=== PATIENT | male | born 1940 | race Caucasian/White ===

== ENCOUNTER → 2023-07-19 07:55 | Outpatient (CLI) | payer MEDICARE, SELFPAY ==
--- NOTE | 2023-07-19 08:15 | DI.RAD.S_ITS ---
PROCEDURE: XR CHEST 2V INDICATIONS: Cough x 9 days TECHNIQUE: 2 views of the chest were acquired. COMPARISON: [facility], , CHEST 2 VIEW, 07/24/2011, 9:37. FINDINGS: Surgical changes and devices: None. Lungs and pleura: Middle lobe consolidation. Left lung is clear. Small right pleural effusion. No left-sided pleural effusion. No pneumothorax bilaterally. Mediastinum: Mediastinal contours are normal. Heart size is normal. Bones and chest wall: No suspicious bony abnormalities. Soft tissues appear unremarkable. IMPRESSION: Middle lobe consolidation most compatible with pneumonia. Recommend short interval radiographic follow-up in 6-8 weeks to document improvement and rule out an underlying obstructive process. Dictated by: Lyle Goyal M.D. on 07/19/2023 at 9:30 Approved by: Lyle Goyal M.D. on 07/19/2023 at 9:32
[2023-07-19 08:48] LABS: COVID-19 CEPHEID 4-PLEX PCR Negative (Negative); Influenza A - CEPHEID Flu A NEGATIVE (NEGATIVE); Influenza B - CEPHEID Flu B NEGATIVE (NEGATIVE); Respiratory Syncytial Virus Negative (Negative)
[2023-07-19 08:59] LABS: Hematocrit 35.9 % (41-53); Hemoglobin 12.2 g/dL (13.5-17.5); Mean Corpuscular Hemoglobin 32.6 PG (26-34); Mean Corpuscular Volume 96.1 fL (80-100); Platelet Count 314 X10^3/uL (150-400); Red Blood Cell Count 3.74 X10^6/uL (4.5-5.9); Red Cell Distribution Width 13.4 % (11.6-14.8); White Blood Cell Count 22.4 X10^3/uL (4.5-11.0)
[2023-07-19 09:23] LABS: Alanine Aminotransferase 47 IU/L (<50); Albumin 3.3 g/dL (3.5-5.0); Albumin Globulin Ratio 1.1 (1.0-2.8); Alkaline Phosphatase 102 U/L (38-126); Aspartate Aminotransferase 49 IU/L (17-59); Bilirubin Total 0.8 mg/dL (0.2-1.3); Blood Urea Nitrogen 37 mg/dL (9-20); Calcium 8.6 mg/dL (8.4-10.2); Carbon Dioxide 24 mmol/L (22-32); Chloride 98 mmol/L (98-107); Estimated Glomerular Filt Rate 53 mL/min (>60); Globulin 3.1 g/dL (1.7-4.1); Glucose 113 mg/dL (80-110); HEMOLYSIS < 15 (0-50); Potassium 4.4 mmol/L (3.4-5.1); Sodium 130 mmol/L (137-145); Total Protein 6.4 g/dL (6.3-8.2)
== END ==
PROVIDERS: Family Provider Family Medicine; PCP Family Medicine; Referring Provider Physician Assistant; Visit Provider Physician Assistant
DX: R05.1 Acute cough (principal); R53.83 Other fatigue; R53.81 Other malaise
CPT/HCPCS: 0241U; 36415; 71046; 80053; 85027

== ENCOUNTER 2023-12-22 10:30 | Outpatient (RCR) | payer MEDICARE, SELFPAY ==
--- NOTE | 2023-08-16 16:49 | PT.OPPOC ---
Physical, Occupational & Speech Therapy At [facility] Current Diagnoses Other chronic pain (08/16/23) Pain in right hip (08/16/23) Low back pain, unspecified (08/16/23) Presence of right artificial hip joint (08/16/23) Visit Care Team Role Provider Type Josefa Harp MD Attending Provider Non-Staff Family Provider Primary Care Provider Referring Provider Specialty: Medical Address: [address] [place] [address] [address], [place], [address] Email: Plan Of Care PT-OP-T Assessment and Plan Start: 08/03/23 10:55 Freq: Status: Active Protocol: Document 08/16/23 10:35 [facility] (Rec: 08/16/23 11:22 [facility] [id number]) Physical Therapy Assessment Rehab Potential Rehabilitation Potential Good Evaluation Complexity Number of Personal Factors/Comorbidities 3 or More Number of Body Systems Impaired 4 or More Clinical Presentation at Evaluation Evolving Impairments Impairments Activity Tolerance,Balance, Functional Activities, Functional Mobility,Gait,Pain, Posture,ROM,Soft Tissue Mobility,Strength Assessment Summary Assessment pt presents w/chronic R back pain (SI) and history of R LUISITO 9 years ago and 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 Leg length discrepency has improved in the past w/PT. He has dec balance and dec ability to stand or walk for long periods d/t back pain. He demonstrates limited R hip mobility and overall B hip weakness and core weakness. He would benefit from skilled PT to work on hip and back mobility and stability along w /gait mechanics and balance in order to dec pain. Physical Therapy Plan Frequency and Duration Duration of treatment (weeks) 10 Plan of Care Start Date 08/16/23 Plan of Care End Date 10/25/23 Therapeutic Interventions Therapeutic Interventions Balance Training,Gait Training ,Home Exercise Program,Joint Mobilizations,Manual Therapy, Neuromuscular Re-education, Orthotic/Prosthetic Management ,Patient/Caregiver Education, Self-Care/Home Management,Soft Tissue Mobilization,Taping, Therapeutic Activities, Therapeutic Exercises Modalities Cold Pack/Ice Massage,Electric Stimulation,Hot Packs, Traction- Mechanical, Ultrasound Next Visit Focus/Plan Next Note Type Treatment Note Next Visit Plan review HEP,s tanding hip strength exercises, controlled sit to stands; manual to pelvis and B hips (gentle to R as prior LUISITO) Plan of Care Dates Plan of Care Start Date 08/16/23 Plan of Care End Date 10/25/23 Electronically Signed by: France Haas, PT 08/17/23 9091 If you are in agreement with this Plan of Care, please return a signed and dated copy. I have reviewed this Plan of Care and certify that the skilled therapy services above are required to meet the patient?s needs. Physician Signature Date Printed Name and Credentials Clinical Instructor Signature Printed Name and Credentials
--- NOTE | 2023-08-16 17:48 | PT.OIE ---
Current Diagnoses Other chronic pain (08/16/23) Pain in right hip (08/16/23) Low back pain, unspecified (08/16/23) Presence of right artificial hip joint (08/16/23) Visit Care Team Role Provider Type Josefa Harp MD Attending Provider Non-Staff Family Provider Primary Care Provider Referring Provider Specialty: Medical Address: [address] [place] [address] [address], [place], [address] Email: Physical Therapy Initial Evaluation PT-OP-A Visit Information Start: 08/03/23 10:55 Freq: Status: Active Protocol: Document 08/16/23 10:35 [facility] (Rec: 08/16/23 11:22 [facility] [id number]) Out-Patient Physical Therapy Visit Information Visit Information Visit Type Initial Evaluation Visit Note 08/18 Visit Start Time 10:35 Visit Stop Time 11:15 Total Visit Minutes 40 Visit Number 1 Number of AIRPORT OPERATIONS OFFICER Visits 0 PT-OP-B Current Condition Start: 08/03/23 10:55 Freq: Status: Active Protocol: Document 08/16/23 10:35 [facility] (Rec: 08/16/23 11:22 [facility] [id number]) Current Condition History of Current Condition Current Complaints R SI and lower lumbar History of Current Condition Pt reports the back and hip pain has been going on for several years. He had LUISITO in 9 years. He has leg length discrepency which was better intially after Luisito but that got worse and did PT about 7-8 years ago. Leg length has gotten worse again. Wants program for stability. His back pain has been several years and has been getting worse. It is all R sided. He has always had a leg length since HS. WEars a small lift in R shoe. Cant walk as far. He walks w/his and gardens. Walks w/ 2-3x a week about 1.5 miles slowly- sometimes has pain at the end . Bikes a couple times a week with ebike. Treatment Goals Patient/Caregiver Goals get stabilization program to help maintain mobility PT-OP-C Subjective Start: 08/03/23 10:55 Freq: Status: Active Protocol: Document 08/16/23 10:35 [facility] (Rec: 08/16/23 11:22 [facility] [id number]) Patient Questionnaires Oswestry Low Back Index Oswestry Score OP-PT Pain Assessment Location R SI Pain Location Details R SI and lower lumbar Description Aching,With Movement Frequency Intermittent Pain Aggravating Factors Activity,Standing,Walking, Bending Other Pain Aggravating Factors garden Pain Alleviating Factors Inactivity,Sitting PT-OP-D Balance Start: 08/03/23 10:55 Freq: Status: Active Protocol: Document 08/16/23 10:35 [facility] (Rec: 08/16/23 11:22 [facility] [id number]) Balance Tests Single Limb Standing Single Limb- Right 9 sec w/deviation Single Limb- Left 12 sec w/deviation PT-OP-F Manual Assessment Start: 08/03/23 10:55 Freq: Status: Active Protocol: Document 08/16/23 10:35 [facility] (Rec: 08/16/23 11:22 [facility] [id number]) Manual Assessments Joint Mobility Assessment Joint Mobility Assessment L iliac crest heigher and greater trochanter and fib head; PT-OP-G Mobility & Gait Start: 08/03/23 10:55 Freq: Status: Active Protocol: Document 08/16/23 10:35 [facility] (Rec: 08/16/23 11:22 [facility] [id number]) OP Gait Assessment Comments Gait Comments dec push off LLE; slight lat trunk leaning, overall dec pelvis motion PT-OP-J Posture/Palpation/Skin Start: 08/03/23 10:55 Freq: Status: Active Protocol: Document 08/16/23 10:35 [facility] (Rec: 08/16/23 11:22 [facility] [id number]) Posture Evaluation [facility] Postural Classification System [facility] Postural Classifications Posterior/Anterior Vertebral Compression Test 2 Lumbar Protective Mechanism Left AP 0 Lumbar Protective Mechanism Right AP 0 Lumbar Protective Mechanism Left PA 1 Lumbar Protective Mechanism Right PA 1 Comments Posture Comments L pelvic shear, LLE ER>R; inc kyphsosis fwd head PT-OP-K Range of Motion Start: 08/03/23 10:55 Freq: Status: Active Protocol: Document 08/16/23 10:35 [facility] (Rec: 08/16/23 11:22 [facility] [id number]) Lumbar Spine Range of Motion Lumbar Spine Active Percentage Flexion 50 Extension 30 Rotation Left 40 Rotation Right 40 Lateral Flexion Left 80 Lateral Flexion Right 60 Comments pain w/flex and ext; pain w/R SB PT-OP-L Special Tests Start: 08/03/23 10:55 Freq: Status: Active Protocol: Document 08/16/23 10:35 [facility] (Rec: 08/16/23 11:22 [facility] [id number]) Special Tests Lumbar Spine Special Tests Slump Test Results ng B Straight Leg Raise Test Results about 45 deg HS stretch PT-OP-M Strength Start: 08/03/23 10:55 Freq: Status: Active Protocol: Document 08/16/23 10:35 [facility] (Rec: 08/16/23 11:22 [facility] [id number]) Hip Strength Hip Manual Muscle Testing Right Flexion (L2) 3+ Fair+ Extension (S1) 3+ Fair+ Abduction 3+ Fair+ External Rotation 4 Good Internal Rotation 4- Good- Left Flexion (L2) 4- Good- Extension (S1) 3+ Fair+ Abduction 4- Good- External Rotation 4+ Good+ Internal Rotation 5 Normal Knee Strength Knee Manual Muscle Testing Right Flexion (S2) 5 Normal Extension (L3) 5 Normal Left Flexion (S2) 5 Normal Extension (L3) 5 Normal Ankle/Foot Strength Ankle and Foot Manual Muscle Testing Right Dorsiflexion (L4) 5 Normal Plantarflexion (S1) 5 Normal Left Dorsiflexion (L4) 5 Normal Plantarflexion (S1) 5 Normal Comments 20 heel raises B PT-OP-Q Treatments Start: 08/03/23 10:55 Freq: Status: Active Protocol: Document 08/16/23 10:35 [facility] (Rec: 08/16/23 11:22 [facility] [id number]) Therapeutic Exercises Supine Exercises isometric Supine Exercise Name DL flex Side bilateral Reps/Minutes 30 sec Comments max cues for set up and inc time pelvic tilts Reps/Minutes 15 LTR Side bilateral Reps/Minutes 10 Comments max cues for core engagement PT-OP-T Assessment and Plan Start: 08/03/23 10:55 Freq: Status: Active Protocol: Document 08/16/23 10:35 [facility] (Rec: 08/16/23 11:22 [facility] [id number]) Physical Therapy Assessment Rehab Potential Rehabilitation Potential Good Evaluation Complexity Number of Personal Factors/Comorbidities 3 or More Number of Body Systems Impaired 4 or More Clinical Presentation at Evaluation Evolving Impairments Impairments Activity Tolerance,Balance, Functional Activities, Functional Mobility,Gait,Pain, Posture,ROM,Soft Tissue Mobility,Strength Assessment Summary Assessment pt presents w/chronic R back pain (SI) and history of R LUISITO 9 years ago and 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 Leg length discrepency has improved in the past w/PT. He has dec balance and dec ability to stand or walk for long periods d/t back pain. He demonstrates limited R hip mobility and overall B hip weakness and core weakness. He would benefit from skilled PT to work on hip and back mobility and stability along w /gait mechanics and balance in order to dec pain. Physical Therapy Plan Frequency and Duration Duration of treatment (weeks) 10 Plan of Care Start Date 08/16/23 Plan of Care End Date 10/25/23 Therapeutic Interventions Therapeutic Interventions Balance Training,Gait Training ,Home Exercise Program,Joint Mobilizations,Manual Therapy, Neuromuscular Re-education, Orthotic/Prosthetic Management ,Patient/Caregiver Education, Self-Care/Home Management,Soft Tissue Mobilization,Taping, Therapeutic Activities, Therapeutic Exercises Modalities Cold Pack/Ice Massage,Electric Stimulation,Hot Packs, Traction- Mechanical, Ultrasound Next Visit Focus/Plan Next Note Type Treatment Note Next Visit Plan review [employer] kristen hip strength exercises, controlled sit to stands; manual to pelvis and B hips (gentle to R as prior LUISITO)
--- NOTE | 2023-08-16 18:51 | PT.OIE ---
Current Diagnoses Other chronic pain (08/23/23) Pain in right hip (08/23/23) Low back pain, unspecified (08/23/23) Presence of right artificial hip joint (08/23/23) Visit Care Team Role Provider Type Josefa Harp MD Attending Provider Non-Staff Family Provider Primary Care Provider Referring Provider Specialty: Medical Address: [address] [place] [address] [address], [place], [address] Email: Physical Therapy Initial Evaluation PT-OP-A Visit Information Start: 08/03/23 10:55 Freq: Status: Active Protocol: Document 08/23/23 18:51 [facility] (Rec: 08/16/23 11:22 [facility] [id number]) Out-Patient Physical Therapy Visit Information Visit Information Visit Type Initial Evaluation Visit Note 08/18 Visit Start Time 10:35 Visit Stop Time 11:15 Total Visit Minutes 40 Visit Number 1 Number of DOPE MIXER Visits 0 PT-OP-B Current Condition Start: 08/03/23 10:55 Freq: Status: Active Protocol: Document 08/23/23 18:51 [facility] (Rec: 08/16/23 11:22 [facility] [id number]) Current Condition History of Current Condition Current Complaints R SI and lower lumbar History of Current Condition Pt reports the back and hip pain has been going on for several years. He had KELLI in 9 years. 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 Leg length has gotten worse again. Wants program for stability. His back pain has been several years and has been getting worse. It is all R sided. He has always had a leg length since HS. WEars a small lift in R shoe. Cant walk as far. He walks w/his and gardens. Walks w/ 2-3x a week about 1.5 miles slowly- sometimes has pain at the end . Bikes a couple times a week with ebike. Treatment Goals Patient/Caregiver Goals get stabilization program to help maintain mobility PT-OP-C Subjective Start: 08/03/23 10:55 Freq: Status: Active Protocol: Document 08/23/23 18:51 [facility] (Rec: 08/16/23 11:22 [facility] [id number]) Patient Questionnaires Oswestry Low Back Index Oswestry Score OP-PT Pain Assessment Location R SI Pain Location Details R SI and lower lumbar Description Aching,With Movement Frequency Intermittent Pain Aggravating Factors Activity,Standing,Walking, Bending Other Pain Aggravating Factors garden Pain Alleviating Factors Inactivity,Sitting PT-OP-D Balance Start: 08/03/23 10:55 Freq: Status: Active Protocol: Document 08/23/23 18:51 [facility] (Rec: 08/16/23 11:22 [facility] [id number]) Balance Tests Single Limb Standing Single Limb- Right 9 sec w/deviation Single Limb- Left 12 sec w/deviation PT-OP-F Manual Assessment Start: 08/03/23 10:55 Freq: Status: Active Protocol: Document 08/23/23 18:51 [facility] (Rec: 08/16/23 11:22 [facility] [id number]) Manual Assessments Joint Mobility Assessment Joint Mobility Assessment L iliac crest heigher and greater trochanter and fib head; PT-OP-G Mobility & Gait Start: 08/03/23 10:55 Freq: Status: Active Protocol: Document 08/23/23 18:51 [facility] (Rec: 08/16/23 11:22 [facility] [id number]) OP Gait Assessment Comments Gait Comments dec push off LLE; slight lat trunk leaning, overall dec pelvis motion PT-OP-J Posture/Palpation/Skin Start: 08/03/23 10:55 Freq: Status: Active Protocol: Document 08/23/23 18:51 [facility] (Rec: 08/16/23 11:22 [facility] [id number]) Posture Evaluation [facility] Postural Classification System [facility] Postural Classifications Posterior/Anterior Vertebral Compression Test 2 Lumbar Protective Mechanism Left AP 0 Lumbar Protective Mechanism Right AP 0 Lumbar Protective Mechanism Left PA 1 Lumbar Protective Mechanism Right PA 1 Comments Posture Comments L pelvic shear, LLE ER>R; inc kyphsosis fwd head PT-OP-K Range of Motion Start: 08/03/23 10:55 Freq: Status: Active Protocol: Document 08/23/23 18:51 [facility] (Rec: 08/16/23 11:22 [facility] [id number]) Lumbar Spine Range of Motion Lumbar Spine Active Percentage Flexion 50 Extension 30 Rotation Left 40 Rotation Right 40 Lateral Flexion Left 80 Lateral Flexion Right 60 Comments pain w/flex and ext; pain w/R SB PT-OP-L Special Tests Start: 08/03/23 10:55 Freq: Status: Active Protocol: Document 08/23/23 18:51 [facility] (Rec: 08/16/23 11:22 [facility] [id number]) Special Tests Lumbar Spine Special Tests Slump Test Results ng B Straight Leg Raise Test Results about 45 deg HS stretch PT-OP-M Strength Start: 08/03/23 10:55 Freq: Status: Active Protocol: Document 08/23/23 18:51 [facility] (Rec: 08/16/23 11:22 [facility] [id number]) Hip Strength Hip Manual Muscle Testing Right Flexion (L2) 3+ Fair+ Extension (S1) 3+ Fair+ Abduction 3+ Fair+ External Rotation 4 Good Internal Rotation 4- Good- Left Flexion (L2) 4- Good- Extension (S1) 3+ Fair+ Abduction 4- Good- External Rotation 4+ Good+ Internal Rotation 5 Normal Knee Strength Knee Manual Muscle Testing Right Flexion (S2) 5 Normal Extension (L3) 5 Normal Left Flexion (S2) 5 Normal Extension (L3) 5 Normal Ankle/Foot Strength Ankle and Foot Manual Muscle Testing Right Dorsiflexion (L4) 5 Normal Plantarflexion (S1) 5 Normal Left Dorsiflexion (L4) 5 Normal Plantarflexion (S1) 5 Normal Comments 20 heel raises B PT-OP-Q Treatments Start: 08/03/23 10:55 Freq: Status: Active Protocol: Document 08/23/23 18:51 [facility] (Rec: 08/16/23 11:22 [facility] [id number]) Therapeutic Exercises Supine Exercises isometric Supine Exercise Name DL flex Side bilateral Reps/Minutes 30 sec Comments max cues for set up and inc time pelvic tilts Reps/Minutes 15 LTR Side bilateral Reps/Minutes 10 Comments max cues for core engagement PT-OP-T Assessment and Plan Start: 08/03/23 10:55 Freq: Status: Active Protocol: Document 08/23/23 18:51 [facility] (Rec: 08/16/23 11:22 [facility] [id number]) Physical Therapy Assessment Rehab Potential Rehabilitation Potential Good Evaluation Complexity Number of Personal Factors/Comorbidities 3 or More Number of Body Systems Impaired 4 or More Clinical Presentation at Evaluation Evolving Impairments Impairments Activity Tolerance,Balance, Functional Activities, Functional Mobility,Gait,Pain, Posture,ROM,Soft Tissue Mobility,Strength Goals balance Applicator Sprayer Goal (LTG) pt will be able to do SLS for 15 sec B LTG Duration 10/25/23 KYLEIGH Impairment 9/50 Applicator Sprayer Goal (LTG) Pt will show iimproved KYLEIGH score to no greater than 4/50 to show improved functional ability LTG Duration 10/25/23 activity Short Term Goal (STG) Pt will be able to do standard walks w/ w/o inc pain STG Duration 09/26 Applicator Sprayer Goal (LTG) Pt will be able to walk greater than 1.5 mile without increased pain LTG Duration 10/25/23 strength Short Term Goal (STG) Pt will be indep w/HEP Applicator Sprayer Goal (LTG) Pt will score at least 4+/5 on all LE MMT B and at least 3/5 on LPM in all planes to show improved stabiltiy in order to dec pain. 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 Leg length discrepency has improved in the past w/PT. He has dec balance and dec ability to stand or walk for long periods d/t back pain. He demonstrates limited R hip mobility and overall B hip weakness and core weakness. He would benefit from skilled PT to work on hip and back mobility and stability along w /gait mechanics and balance in order to dec pain. Physical Therapy Plan Frequency and Duration Duration of treatment (weeks) 10 Plan of Care Start Date 08/16/23 Plan of Care End Date 10/25/23 Therapeutic Interventions Therapeutic Interventions Balance Training,Gait Training ,Home Exercise Program,Joint Mobilizations,Manual Therapy, Neuromuscular Re-education, Orthotic/Prosthetic Management ,Patient/Caregiver Education, Self-Care/Home Management,Soft Tissue Mobilization,Taping, Therapeutic Activities, Therapeutic Exercises Modalities Cold Pack/Ice Massage,Electric Stimulation,Hot Packs, Traction- Mechanical, Ultrasound Next Visit Focus/Plan Next Note Type Treatment Note Next Visit Plan review HEP,s tanding hip strength exercises, controlled sit to stands; manual to pelvis and B hips (gentle to R as prior KELLI)
--- NOTE | 2023-08-16 18:51 | PT.OPPOC ---
Addendum entered and electronically signed by France Haas, PT 08/23/23 18:53: POC faxed Original Note: Physical, Occupational & Speech Therapy At [facility] Current Diagnoses Other chronic pain (08/23/23) Pain in right hip (08/23/23) Low back pain, unspecified (08/23/23) Presence of right artificial hip joint (08/23/23) Visit Care Team Role Provider Type Josefa Harp MD Attending Provider Non-Staff Family Provider Primary Care Provider Referring Provider Specialty: Medical Address: [address] [place] [address], [place], [address] Email: Plan Of Care PT-OP-T Assessment and Plan Start: 08/03/23 10:55 Freq: Status: Active Protocol: Document 08/23/23 18:51 [facility] (Rec: 08/16/23 11:22 [facility] [id number]) Physical Therapy Assessment Rehab Potential Rehabilitation Potential Good Evaluation Complexity Number of Personal Factors/Comorbidities 3 or More Number of Body Systems Impaired 4 or More Clinical Presentation at Evaluation Evolving Impairments Impairments Activity Tolerance,Balance, Functional Activities, Functional Mobility,Gait,Pain, Posture,ROM,Soft Tissue Mobility,Strength Goals balance Fdc Goal (LTG) pt will be able to do SLS for 15 sec B LTG Duration 10/25/23 KYLEIGH Impairment 9/50 Professor Of Physics Goal (LTG) Pt will show iimproved KYLEIGH score to no greater than 4/50 to show improved functional ability LTG Duration 10/25/23 activity Short Term Goal (STG) Pt will be able to do standard walks w/ w/o inc pain STG Duration 09/26 Fdc Goal (LTG) Pt will be able to walk greater than 1.5 mile without increased pain LTG Duration 10/25/23 strength Short Term Goal (STG) Pt will be indep w/HEP Professor Of Physics Goal (LTG) Pt will score at least 4+/5 on all LE MMT B and at least 3/5 on LPM in all planes to show improved stabiltiy in order to dec pain. 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 Leg length discrepency has improved in the past w/PT. He has dec balance and dec ability to stand or walk for long periods d/t back pain. He demonstrates limited R hip mobility and overall B hip weakness and core weakness. He would benefit from skilled PT to work on hip and back mobility and stability along w /gait mechanics and balance in order to dec pain. Physical Therapy Plan Frequency and Duration Duration of treatment (weeks) 10 Plan of Care Start Date 08/16/23 Plan of Care End Date 10/25/23 Therapeutic Interventions Therapeutic Interventions Balance Training,Gait Training ,Home Exercise Program,Joint Mobilizations,Manual Therapy, Neuromuscular Re-education, Orthotic/Prosthetic Management ,Patient/Caregiver Education, Self-Care/Home Management,Soft Tissue Mobilization,Taping, Therapeutic Activities, Therapeutic Exercises Modalities Cold Pack/Ice Massage,Electric Stimulation,Hot Packs, Traction- Mechanical, Ultrasound Next Visit Focus/Plan Next Note Type Treatment Note Next Visit Plan review HEP,s tanding hip strength exercises, controlled sit to stands; manual to pelvis and B hips (gentle to R as prior LUISITO) Plan of Care Dates Plan of Care Start Date 08/16/23 Plan of Care End Date 10/25/23 Electronically Signed by: France Haas, PT 08/23/23 1556 If you are in agreement with this Plan of Care, please return a signed and dated copy. I have reviewed this Plan of Care and certify that the skilled therapy services above are required to meet the patient?s needs. Physician Signature Date Printed Name and Credentials Clinical Instructor Signature Printed Name and Credentials
--- NOTE | 2023-08-23 13:00 | PT.OTN ---
Current Diagnoses Other chronic pain (08/23/23) Pain in right hip (08/23/23) Low back pain, unspecified (08/23/23) Presence of right artificial hip joint (08/23/23) Physical Therapy Treatment Note PT-OP-A Visit Information Start: 08/03/23 10:55 Freq: Status: Active Protocol: Document 08/23/23 12:17 SP (Rec: 08/23/23 13:05 SP [id number]) Out-Patient Physical Therapy Visit Information Visit Information Visit Type Treatment Note Visit Note 09/18 Visit Start Time 12:17 Visit Stop Time 13:00 Total Visit Minutes 42 Visit Number 2 Number of CONVERTIBLE POWER SHOVEL OPERATOR Visits 1 PT-OP-B Current Condition Start: 08/03/23 10:55 Freq: Status: Active Protocol: Document 08/16/23 10:35 [facility] (Rec: 08/16/23 11:22 [facility] [id number]) Current Condition History of Current Condition Current Complaints R SI and lower lumbar History of Current Condition Pt reports the back and hip pain has been going on for several years. He had KELLI in 9 years. 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 Leg length has gotten worse again. Wants program for stability. His back pain has been several years and has been getting worse. It is all R sided. He has always had a leg length since HS. WEars a small lift in R shoe. Cant walk as far. He walks w/his and gardens. Walks w/ 2-3x a week about 1.5 miles slowly- sometimes has pain at the end . Bikes a couple times a week with ebike. Treatment Goals Patient/Caregiver Goals get stabilization program to help maintain mobility PT-OP-C Subjective Start: 08/03/23 10:55 Freq: Status: Active Protocol: Document 08/23/23 12:17 SP (Rec: 08/23/23 13:05 SP [id number]) OP-PT Subjective Patient Comments Patient Comments Pt reports compliant with HEP, feels hitting the target and responding. Wants to review doing correctly. PT-OP-D Balance Start: 08/03/23 10:55 Freq: Status: Active Protocol: Document 08/16/23 10:35 [facility] (Rec: 08/16/23 11:22 [facility] [id number]) Balance Tests Single Limb Standing Single Limb- Right 9 sec w/deviation Single Limb- Left 12 sec w/deviation PT-OP-F Manual Assessment Start: 08/03/23 10:55 Freq: Status: Active Protocol: Document 08/16/23 10:35 [facility] (Rec: 08/16/23 11:22 [facility] [id number]) Manual Assessments Joint Mobility Assessment Joint Mobility Assessment L iliac crest heigher and greater trochanter and fib head; PT-OP-G Mobility & Gait Start: 08/03/23 10:55 Freq: Status: Active Protocol: Document 08/16/23 10:35 [facility] (Rec: 08/16/23 11:22 [facility] [id number]) OP Gait Assessment Comments Gait Comments dec push off LLE; slight lat trunk leaning, overall dec pelvis motion PT-OP-J Posture/Palpation/Skin Start: 08/03/23 10:55 Freq: Status: Active Protocol: Document 08/16/23 10:35 [facility] (Rec: [facility]16/23 [id number] Postural Classification System [facility] Postural Classifications Posterior/Anterior Vertebral Compression Test 2 Lumbar Protective Mechanism Left AP 0 Lumbar Protective Mechanism Right AP 0 Lumbar Protective Mechanism Left PA 1 Lumbar Protective Mechanism Right PA 1 Comments Posture Comments L pelvic shear, LLE ER>R; inc kyphsosis fwd head PT-OP-K Range of Motion Start: 08/03/23 10:55 Freq: Status: Active Protocol: Document 08/16/23 10:35 [facility] (Rec: 08/16/23 11:22 [facility] [id number]) Lumbar Spine Range of Motion Lumbar Spine Active Percentage Flexion 50 Extension 30 Rotation Left 40 Rotation Right 40 Lateral Flexion Left 80 Lateral Flexion Right 60 Comments pain w/flex and ext; pain w/R SB PT-OP-L Special Tests Start: 08/03/23 10:55 Freq: Status: Active Protocol: Document 08/16/23 10:35 [facility] (Rec: 08/16/23 11:22 [facility] [id number]) Special Tests Lumbar Spine Special Tests Slump Test Results ng B Straight Leg Raise Test Results about 45 deg HS stretch PT-OP-M Strength Start: 08/03/23 10:55 Freq: Status: Active Protocol: Document 08/16/23 10:35 [facility] (Rec: 08/16/23 11:22 [facility] [id number]) Hip Strength Hip Manual Muscle Testing Right Flexion (L2) 3+ Fair+ Extension (S1) 3+ Fair+ Abduction 3+ Fair+ External Rotation 4 Good Internal Rotation 4- Good- Left Flexion (L2) 4- Good- Extension (S1) 3+ Fair+ Abduction 4- Good- External Rotation 4+ Good+ Internal Rotation 5 Normal Knee Strength Knee Manual Muscle Testing Right Flexion (S2) 5 Normal Extension (L3) 5 Normal Left Flexion (S2) 5 Normal Extension (L3) 5 Normal Ankle/Foot Strength Ankle and Foot Manual Muscle Testing Right Dorsiflexion (L4) 5 Normal Plantarflexion (S1) 5 Normal Left Dorsiflexion (L4) 5 Normal Plantarflexion (S1) 5 Normal Comments 20 heel raises B PT-OP-Q Treatments Start: 08/03/23 10:55 Freq: Status: Active Protocol: Document 08/23/23 12:17 SP (Rec: 08/23/23 13:05 SP [id number]) Therapeutic Exercises Supine Exercises isometric Supine Exercise Name DL flex Side bilateral Reps/Minutes 30SH, 40 SH Comments cued PPT, good tiring effort in TA and back but no pain pelvic tilts Reps/Minutes 10 reps, 10 SH Comments cued slow engage/release, improved TA fac and LS ROM LTR Side bilateral Reps/Minutes 10, 3 SH end feel/range tolerant Comments max cues for core engagement with slow ROM Sitting Exercises STS Sitting Exercise Name eccentric sit/stand Reps/Minutes x5 reps arms across chest Comments suggested keeping up with Other Exercises cat camel Other Exercise Name added to HEP Equipment Used floor on yoga mat encouraged at home Reps/Minutes x5 reps Comments cued and mod cues for pelvic tilts tailbone floor/ceiling improved LS ROM quadruped Other Exercise Name added to HEP: UE/ LE ext glide floor, lift little if stable Side bilateral Equipment Used floor on yoga mat encouraged at home Reps/Minutes 5 reps each side Comments good form, cued slow only lift if stable- good activity effort mobility child's pose Other Exercise Name added to HEP Equipment Used floor on yoga mat encouraged at home Reps/Minutes 2x30 Comments good LB stretch Therapeutic Activity Therapeutic Activity on/off floor Name good for use furniture for stabilty for HEP Reps/Minutes 1 Comments good form I Self-Care/Home Management Treatment Education Patient Education Home Exercise Program,Joint Protection,Pain Management, Posture Other Education He discussed still performs supine hip FF, ABD from his past. Discussed keep up with. Some time spent discussion use pillows between BLEs at night and naps for hip/LB support, if supine pillow under thighs good understanding and reasoning. PT-OP-T Assessment and Plan Start: 08/03/23 10:55 Freq: Status: Active Protocol: Document 08/23/23 12:17 SP (Rec: 08/23/23 13:05 SP [id number]) Physical Therapy Assessment Assessment Summary Assessment Pt good response to HEP review . Initiated on/off floor with chair support for allowance strengthening activity keep up with, added quadruped AROM/ stretching and UE/ LE against gravity with occasional cue for alignment set up lift if stable. Provided HOs for new quadruped activities, pt reports I am feel pretty good and like the new exercises like doing something again. Painfree leaving. Physical Therapy Plan Frequency and Duration Duration of treatment (weeks) 10 Plan of Care Start Date 08/16/23 Plan of Care End Date 10/25/23 Therapeutic Interventions Therapeutic Interventions Balance Training,Gait Training ,Home Exercise Program,Joint Mobilizations,Manual Therapy, Neuromuscular Re-education, Orthotic/Prosthetic Management ,Patient/Caregiver Education, Self-Care/Home Management,Soft Tissue Mobilization,Taping, Therapeutic Activities, Therapeutic Exercises Modalities Cold Pack/Ice Massage,Electric Stimulation,Hot Packs, Traction- Mechanical, Ultrasound Next Visit Focus/Plan Next Note Type Treatment Note Next Visit Plan Review HEP: new quadruped, supine DL isometric again. POC: add standing hip strength exercises, controlled sit to stands; manual to pelvis and B hips (gentle to R as prior KELLI)
--- NOTE | 2023-09-06 12:18 | PT.OTN ---
Current Diagnoses Other chronic pain (09/06/23) Pain in right hip (09/06/23) Low back pain, unspecified (09/06/23) Presence of right artificial hip joint (09/06/23) Physical Therapy Treatment Note PT-OP-A Visit Information Start: 08/03/23 10:55 Freq: Status: Active Protocol: Document 09/06/23 11:21 [facility] (Rec: 09/06/23 12:18 [facility] [id number]) Out-Patient Physical Therapy Visit Information Visit Information Visit Type Treatment Note Visit Note 10/16 Visit Start Time 11: Visit Stop Time 12: Visit Number 3 Number of STRIPPER MACHINE OPERATOR Visits 0 PT-OP-B Current Condition Start: 08/03/23 10:55 Freq: Status: Active Protocol: Document 08/16/23 18:51 [facility] (Rec: 08/16/23 11:22 [facility] [id number]) Current Condition History of Current Condition Current Complaints R SI and lower lumbar History of Current Condition Pt reports the back and hip pain has been going on for several years. He had KELLI in 9 years. He has leg length discrepency which was better intially after Kleli but that got worse and did PT about 7-8 years ago. Leg length has gotten worse again. Wants program for stability. His back pain has been several years and has been getting worse. It is all R sided. He has always had a leg length since HS. WEars a small lift in R shoe. Cant walk as far. He walks w/his and gardens. Walks w/ 2-3x a week about 1.5 miles slowly- sometimes has pain at the end . Bikes a couple times a week with ebike. Treatment Goals Patient/Caregiver Goals get stabilization program to help maintain mobility PT-OP-C Subjective Start: 08/03/23 10:55 Freq: Status: Active Protocol: Document 09/06/23 11:21 [facility] (Rec: 09/06/23 12:18 [facility] [id number]) OP-PT Subjective Patient Comments Patient Comments Pt reports he was walking a lot in [place] so was doing exercises less but did do them some. PT-OP-D Balance Start: 08/03/23 10:55 Freq: Status: Active Protocol: Document 08/16/23 18:51 [facility] (Rec: 08/16/23 11:22 [facility] [id number]) Balance Tests Single Limb Standing Single Limb- Right 9 sec w/deviation Single Limb- Left 12 sec w/deviation PT-OP-F Manual Assessment Start: 08/03/23 10:55 Freq: Status: Active Protocol: Document 08/16/23 18:51 [facility] (Rec: 08/16/23 11:22 [facility] [id number]) Manual Assessments Joint Mobility Assessment Joint Mobility Assessment L iliac crest heigher and greater trochanter and fib head; PT-OP-G Mobility & Gait Start: 08/03/23 10:55 Freq: Status: Active Protocol: Document 08/16/23 18:51 [facility] (Rec: 08/16/23 11:22 [facility] [id number]) OP Gait Assessment Comments Gait Comments dec push off LLE; slight lat trunk leaning, overall dec pelvis motion PT-OP-J Posture/Palpation/Skin Start: 08/03/23 10:55 Freq: Status: Active Protocol: Document 08/16/23 18:51 [facility] (Rec: 08/16/23 11:22 [facility] [id number]) Posture Evaluation [facility] Postural Classification System [facility] Postural Classifications Posterior/Anterior Vertebral Compression Test 2 Lumbar Protective Mechanism Left AP 0 Lumbar Protective Mechanism Right AP 0 Lumbar Protective Mechanism Left PA 1 Lumbar Protective Mechanism Right PA 1 Comments Posture Comments L pelvic shear, LLE ER>R; inc kyphsosis fwd head PT-OP-K Range of Motion Start: 08/03/23 10:55 Freq: Status: Active Protocol: Document 08/16/23 18:51 [facility] (Rec: 08/16/23 11:22 [facility] [id number]) Lumbar Spine Range of Motion Lumbar Spine Active Percentage Flexion 50 Extension 30 Rotation Left 40 Rotation Right 40 Lateral Flexion Left 80 Lateral Flexion Right 60 Comments pain w/flex and ext; pain w/R SB PT-OP-L Special Tests Start: 08/03/23 10:55 Freq: Status: Active Protocol: Document 08/16/23 18:51 [facility] (Rec: 08/16/23 11:22 [facility] [id number]) Special Tests Lumbar Spine Special Tests Slump Test Results ng B Straight Leg Raise Test Results about 45 deg HS stretch PT-OP-M Strength Start: 08/03/23 10:55 Freq: Status: Active Protocol: Document 08/16/23 18:51 [facility] (Rec: 08/16/23 11:22 [facility] [id number]) Hip Strength Hip Manual Muscle Testing Right Flexion (L2) 3+ Fair+ Extension (S1) 3+ Fair+ Abduction 3+ Fair+ External Rotation 4 Good Internal Rotation 4- Good- Left Flexion (L2) 4- Good- Extension (S1) 3+ Fair+ Abduction 4- Good- External Rotation 4+ Good+ Internal Rotation 5 Normal Knee Strength Knee Manual Muscle Testing Right Flexion (S2) 5 Normal Extension (L3) 5 Normal Left Flexion (S2) 5 Normal Extension (L3) 5 Normal Ankle/Foot Strength Ankle and Foot Manual Muscle Testing Right Dorsiflexion (L4) 5 Normal Plantarflexion (S1) 5 Normal Left Dorsiflexion (L4) 5 Normal Plantarflexion (S1) 5 Normal Comments 20 heel raises B PT-OP-Q Treatments Start: 08/03/23 10:55 Freq: Status: Active Protocol: Document 09/06/23 11:21 [facility] (Rec: 09/06/23 12:18 [facility] [id number]) Therapeutic Exercises Supine Exercises isometric Supine Exercise Name DL flex Side bilateral Reps/Minutes 30SH Comments min cues for DF pelvic tilts Supine Exercise Name 1. pelvic tilts 2. bridges w/ tilt Side bilateral Reps/Minutes 1. 2x10 sec 2. [id number] LTR Side bilateral Reps/Minutes 10, 3 SH end feel/range tolerant Comments max cues for core engagement with slow ROM Sitting Exercises STS Sitting Exercise Name eccentric sit/stand-tap to chair Side bilateral Reps/Minutes x10 reps arms across chest Other Exercises cat camel Other Exercise Name review HEP Equipment Used floor on yoga mat encouraged at home Reps/Minutes 10 Comments cued and mod cues for pelvic tilts tailbone floor/ceiling improved LS ROM quadruped Other Exercise Name bird dog w/small lift Side bilateral Equipment Used floor on yoga mat encouraged at home Reps/Minutes 10 reps each side Comments cues for neutral trunk child's pose Other Exercise Name review HEP Equipment Used floor on yoga mat encouraged at home Reps/Minutes 2x30 Comments good LB stretch Manual Therapy Treatment Soft Tissue Mobilization hip Body Location R glutes orgin and insertion Mobilization Type Rolling Intensity/Depth Moderate Body Position Sidelying LB Body Location R along iliac crest, sacrum, SI, lower lumbar paraspinals Mobilization Type Rolling Intensity/Depth Moderate Body Position Sidelying Joint Mobilizations lumbar Joint transverse L FM Grade II innominate Joint abd FM s/l Grade II Body Position Sidelying Self-Care/Home Management Treatment Education Other Education 10 min: discussed purpose of exercsies (to inc flexibility and mobility and core stability to stabilize back); edu w/use of pictures and skeleton and PT demo how pelvis rot can inc issues and inc pain. 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 Edu how future worko n L side needed to help level pelvis. PT-OP-T Assessment and Plan Start: 08/03/23 10:55 Freq: Status: Active Protocol: Document 09/06/23 11:21 [facility] (Rec: 09/06/23 12:18 [facility] [id number]) Physical Therapy Assessment Goals balance Custodial Goal (LTG) pt will be able to do SLS for 15 sec B LTG Duration 10/25/23 KYLEIGH Impairment 9/50 Custodial Goal (LTG) Pt will show iimproved KYLEIGH score to no greater than 4/50 to show improved functional ability LTG Duration 10/25/23 activity Short Term Goal (STG) Pt will be able to do standard walks w/ w/o inc pain STG Duration 09/26 Custodial Goal (LTG) Pt will be able to walk greater than 1.5 mile without increased pain LTG Duration 10/25/23 strength Short Term Goal (STG) Pt will be indep w/HEP Hydraulic Miner Goal (LTG) Pt will score at least 4+/5 on all LE MMT B and at least 3/5 on LPM in all planes to show improved stabiltiy in order to dec pain. LTG Duration 10/25/23 Assessment Summary Assessment Pt was very receptive to education today and appreciated inc edu. He did require cues throughout exercises for form but did well. He reports relief after manual. Physical Therapy Plan Next Visit Focus/Plan Next Note Type Treatment Note Next Visit Plan Review HEP: new quadruped, supine DL isometric again. add standing hip strength exercises, controlled sit to stands; manual to pelvis and B hips (gentle to R as prior KELLI)
--- NOTE | 2023-09-15 11:37 | PT.OTN ---
Current Diagnoses Other chronic pain (09/15/23) Pain in right hip (09/15/23) Low back pain, unspecified (09/15/23) Presence of right artificial hip joint (09/15/23) Physical Therapy Treatment Note PT-OP-A Visit Information Start: 08/03/23 10:55 Freq: Status: Active Protocol: Document 09/15/23 09:50 [facility] (Rec: 09/15/23 11:35 [facility] [id number]) Out-Patient Physical Therapy Visit Information Visit Information Visit Type Treatment Note Visit Note 11/16 Visit Start Time 09:50 Visit Stop Time 10:30 Visit Number 4 Number of E COMMERCE SPECIALIST Visits 0 PT-OP-B Current Condition Start: 08/03/23 10:55 Freq: Status: Active Protocol: Document 08/16/23 18:51 [facility] (Rec: 08/16/23 11:22 [facility] [id number]) Current Condition History of Current Condition Current Complaints R SI and lower lumbar History of Current Condition Pt reports the back and hip pain has been going on for several years. He had KELLI in 9 years. 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 Leg length has gotten worse again. Wants program for stability. His back pain has been several years and has been getting worse. It is all R sided. He has always had a leg length since HS. WEars a small lift in R shoe. Cant walk as far. He walks w/his and gardens. Walks w/ 2-3x a week about 1.5 miles slowly- sometimes has pain at the end . Bikes a couple times a week with ebike. Treatment Goals Patient/Caregiver Goals get stabilization program to help maintain mobility PT-OP-C Subjective Start: 08/03/23 10:55 Freq: Status: Active Protocol: Document 09/15/23 09:50 [facility] (Rec: 09/15/23 11:35 [facility] [id number]) OP-PT Subjective Patient Comments Patient Comments Pt reports he wakes every am at 6 am and has to move to the couch PT-OP-D Balance Start: 08/03/23 10:55 Freq: Status: Active Protocol: Document 08/16/23 18:51 [facility] (Rec: 08/16/23 11:22 [facility] [id number]) Balance Tests Single Limb Standing Single Limb- Right 9 sec w/deviation Single Limb- Left 12 sec w/deviation PT-OP-F Manual Assessment Start: 08/03/23 10:55 Freq: Status: Active Protocol: Document 08/16/23 18:51 [facility] (Rec: 08/16/23 11:22 [facility] [id number]) Manual Assessments Joint Mobility Assessment Joint Mobility Assessment L iliac crest heigher and greater trochanter and fib head; PT-OP-G Mobility & Gait Start: 08/03/23 10:55 Freq: Status: Active Protocol: Document 08/16/23 18:51 [facility] (Rec: 08/16/23 11:22 [facility] [id number]) OP Gait Assessment Comments Gait Comments dec push off LLE; slight lat trunk leaning, overall dec pelvis motion PT-OP-J Posture/Palpation/Skin Start: 08/03/23 10:55 Freq: Status: Active Protocol: Document 08/16/23 18:51 [facility] (Rec: 08/16/23 11:22 [facility] [id number]) Posture Evaluation [facility] Postural Classification System [facility] Postural Classifications Posterior/Anterior Vertebral Compression Test 2 Lumbar Protective Mechanism Left AP 0 Lumbar Protective Mechanism Right AP 0 Lumbar Protective Mechanism Left PA 1 Lumbar Protective Mechanism Right PA 1 Comments Posture Comments L pelvic shear, LLE ER>R; inc kyphsosis fwd head PT-OP-K Range of Motion Start: 08/03/23 10:55 Freq: Status: Active Protocol: Document 08/16/23 18:51 [facility] (Rec: 08/16/23 11:22 [facility] [id number]) Lumbar Spine Range of Motion Lumbar Spine Active Percentage Flexion 50 Extension 30 Rotation Left 40 Rotation Right 40 Lateral Flexion Left 80 Lateral Flexion Right 60 Comments pain w/flex and ext; pain w/R SB PT-OP-L Special Tests Start: 08/03/23 10:55 Freq: Status: Active Protocol: Document 08/16/23 18:51 [facility] (Rec: 08/16/23 11:22 [facility] [id number]) Special Tests Lumbar Spine Special Tests Slump Test Results ng B Straight Leg Raise Test Results about 45 deg HS stretch PT-OP-M Strength Start: 08/03/23 10:55 Freq: Status: Active Protocol: Document 08/16/23 18:51 [facility] (Rec: 08/16/23 11:22 [facility] [id number]) Hip Strength Hip Manual Muscle Testing Right Flexion (L2) 3+ Fair+ Extension (S1) 3+ Fair+ Abduction 3+ Fair+ External Rotation 4 Good Internal Rotation 4- Good- Left Flexion (L2) 4- Good- Extension (S1) 3+ Fair+ Abduction 4- Good- External Rotation 4+ Good+ Internal Rotation 5 Normal Knee Strength Knee Manual Muscle Testing Right Flexion (S2) 5 Normal Extension (L3) 5 Normal Left Flexion (S2) 5 Normal Extension (L3) 5 Normal Ankle/Foot Strength Ankle and Foot Manual Muscle Testing Right Dorsiflexion (L4) 5 Normal Plantarflexion (S1) 5 Normal Left Dorsiflexion (L4) 5 Normal Plantarflexion (S1) 5 Normal Comments 20 heel raises B PT-OP-Q Treatments Start: 08/03/23 10:55 Freq: Status: Active Protocol: Document 09/15/23 09:50 [facility] (Rec: 09/15/23 11:35 [facility] [id number]) Therapeutic Exercises Supine Exercises LTR Side bilateral Reps/Minutes 8 min total Comments max cues for core engagement with slow ROM Therapeutic Activity Therapeutic Activity sleep position Reps/Minutes 15 min Comments Edu on importance of sleep and did DELIO format for training on propping in s/l and puttin gin and taking away pillows Manual Therapy Treatment Soft Tissue Mobilization LB Body Location R along iliac crest, sacrum, SI, lower lumbar paraspinals, sacral multifid Mobilization Type Rolling Intensity/Depth Moderate Body Position Sidelying Joint Mobilizations lumbar Joint transverse L FM L 3 and 4 Grade II PT-OP-T Assessment and Plan Start: 08/03/23 10:55 Freq: Status: Active Protocol: Document 09/15/23 09:50 [facility] (Rec: 09/15/23 11:35 [facility] [id number]) Physical Therapy Assessment Goals balance Marketing Assistant [employer] Goal (LTG) pt will be able to do SLS for 15 sec B LTG Duration 10/25/23 KYLEIGH Impairment 9/50 [employer] Assistant [employer] Goal (LTG) Pt will show iimproved KYLEIGH score to no greater than 4/50 to show improved functional ability LTG Duration 10/25/23 activity Short Term Goal (STG) Pt will be able to do standard walks w/ w/o inc pain STG Duration 09/26 Marketing Assistant [employer] Goal (LTG) Pt will be able to walk greater than 1.5 mile without increased pain LTG Duration 10/25/23 strength Short Term Goal (STG) Pt will be indep w/HEP Custodial Goal (LTG) Pt will score at least 4+/5 on all LE MMT B and at least 3/5 on LPM in all planes to show improved stabiltiy in order to dec pain. LTG Duration 10/25/23 Assessment Summary Assessment Pt reports relief w/manual treatment and had improved R pelvis ant elevation. he required a lot of time and cueing w/LTR exercise. Physical Therapy Plan Frequency and Duration Duration of treatment (weeks) 10 Plan of Care Start Date 08/16/23 Plan of Care End Date 10/25/23 Next Visit Focus/Plan Next Note Type Treatment Note Next Visit Plan review exercises as needed; manual to pelvis and lumbar spine and hip to dec pain
--- NOTE | 2023-09-22 11:15 | PT.OTN ---
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 He had KELLI in 9 years. 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 Leg length has gotten worse again. Wants program for stability. His back pain has been several years and has been getting worse. It is all R sided. He has always had a leg length since HS. WEars a small lift in R shoe. Cant walk as far. He walks w/his and gardens. Walks w/ 2-3x a week about 1.5 miles slowly- sometimes has pain at the end . Bikes a couple times a week with ebike. Treatment Goals Patient/Caregiver Goals get stabilization program to help maintain mobility PT-OP-C Subjective Start: 08/03/23 10:55 Freq: Status: Active Protocol: Document 09/22/23 10:31 [facility] (Rec: 09/22/23 11:26 [facility] [id number]) OP-PT Subjective Patient Comments Patient Comments Pt reports traveling alot lately and not doing ex as well as shoulder but back feeling better. He did alot walking approx 2 miles /day over the weekend over uneven fairly level surfaces. PT-OP-D Balance Start: 08/03/23 10:55 Freq: Status: Active Protocol: Document 08/16/23 18:51 [facility] (Rec: 08/16/23 11:22 [facility] [id number]) Balance Tests Single Limb Standing Single Limb- Right 9 sec w/deviation Single Limb- Left 12 sec w/deviation PT-OP-F Manual Assessment Start: 08/03/23 10:55 Freq: Status: Active Protocol: Document 08/16/23 18:51 [facility] (Rec: 08/16/23 11:22 [facility] [id number]) Manual Assessments Joint Mobility Assessment Joint Mobility Assessment L iliac crest heigher and greater trochanter and fib head; PT-OP-G Mobility & Gait Start: 08/03/23 10:55 Freq: Status: Active Protocol: Document 08/16/23 18:51 [facility] (Rec: 08/16/23 11:22 [facility] [id number]) OP Gait Assessment Comments Gait Comments dec push off LLE; slight lat trunk leaning, overall dec pelvis motion PT-OP-J Posture/Palpation/Skin Start: 08/03/23 10:55 Freq: Status: Active Protocol: Document 08/16/23 18:51 [facility] (Rec: 08/16/23 11:22 [facility] [id number]) Posture Evaluation [facility] Postural Classification System [facility] Postural Classifications Posterior/Anterior Vertebral Compression Test 2 Lumbar Protective Mechanism Left AP 0 Lumbar Protective Mechanism Right AP 0 Lumbar Protective Mechanism Left PA 1 Lumbar Protective Mechanism Right PA 1 Comments Posture Comments L pelvic shear, LLE ER>R; inc kyphsosis fwd head PT-OP-K Range of Motion Start: 08/03/23 10:55 Freq: Status: Active Protocol: Document 08/16/23 18:51 [facility] (Rec: 08/16/23 11:22 [facility] [id number]) Lumbar Spine Range of Motion Lumbar Spine Active Percentage Flexion 50 Extension 30 Rotation Left 40 Rotation Right 40 Lateral Flexion Left 80 Lateral Flexion Right 60 Comments pain w/flex and ext; pain w/R SB PT-OP-L Special Tests Start: 08/03/23 10:55 Freq: Status: Active Protocol: Document 08/16/23 18:51 [facility] (Rec: 08/16/23 11:22 [facility] [id number]) Special Tests Lumbar Spine Special Tests Slump Test Results ng B Straight Leg Raise Test Results about 45 deg HS stretch PT-OP-M Strength Start: 12/26/23 10:55 Freq: Status: Active Protocol: Document 08/16/23 18:51 [facility] (Rec: 08/16/23 11:22 [facility] [id number]) Hip Strength Hip Manual Muscle Testing Right Flexion (L2) 3+ Fair+ Extension (S1) 3+ Fair+ Abduction 3+ Fair+ External Rotation 4 Good Internal Rotation 4- Good- Left Flexion (L2) 4- Good- Extension (S1) 3+ Fair+ Abduction 4- Good- External Rotation 4+ Good+ Internal Rotation 5 Normal Knee Strength Knee Manual Muscle Testing Right Flexion (S2) 5 Normal Extension (L3) 5 Normal Left Flexion (S2) 5 Normal Extension (L3) 5 Normal Ankle/Foot Strength Ankle and Foot Manual Muscle Testing Right Dorsiflexion (L4) 5 Normal Plantarflexion (S1) 5 Normal Left Dorsiflexion (L4) 5 Normal Plantarflexion (S1) 5 Normal Comments 20 heel raises B PT-OP-Q Treatments Start: 08/03/23 10:55 Freq: Status: Active Protocol: Document 09/22/23 10:31 [facility] (Rec: 09/22/23 11:26 [facility] [id number]) Therapeutic Exercises Supine Exercises isometric Supine Exercise Name DL flex Side bilateral Reps/Minutes 30SH Comments good form, cued allow head rest on pillow pelvic tilts Supine Exercise Name 1. pelvic tilts 2. bridges w/ tilt Side bilateral Reps/Minutes 1. 2x10 sec 2. 10 reps ROM then [id number] Comments CUed tailbone toward ceiling/ floor best form PTs LTR Supine Exercise Name HEP reviewed Side bilateral Reps/Minutes x10 reps Comments Improved for core engagement / c slow ROM, good TA tension felt Sidelying Exercises hip abd Sidelying Exercise Name added to HEP Side bilateral Reps/Minutes x10 Comments cued stacked alignment, TKE, lat lift Sitting Exercises STS Sitting Exercise Name eccentric sit/stand-tap to chair Side bilateral Reps/Minutes x10 reps arms across chest Comments cued hip hinge/ knee flexion slow descend- better form/stab Standing Exercises lateral step dowon Standing Exercise Name added to HEP Side bilateral Equipment Used rail support Reps/Minutes 2x10 Comments cued knees behind/with mid foot Other Exercises cat camel Other Exercise Name review HEP Equipment Used floor on yoga mat encouraged at home Reps/Minutes 10 Comments cued tailbone tuck quadruped Other Exercise Name bird dog w/small lift Side bilateral Equipment Used floor on yoga mat encouraged at home Reps/Minutes 10 reps each side Comments cues for neutral trunk and lift only height stable (RLE/ LUE) child's pose Other Exercise Name review HEP Equipment Used floor on yoga mat encouraged at home Reps/Minutes 2x30 Comments good LB stretch Therapeutic Activity Therapeutic Activity log roll technique Reps/Minutes 3 reps Comments cues for complete roll on side <> back, leg mob off/on table, use UEs to right sit>SL on/off floor Name good for use furniture for stabilty descend for HEP Reps/Minutes 1 Comments good form I ascend UE support in PT-OP-T Assessment and Plan Start: 08/03/23 10:55 Freq: Status: Active Protocol: Document 09/22/23 10:31 [facility] (Rec: 09/22/23 11:26 [facility] [id number]) Physical Therapy Assessment Goals balance Dog Trainer Goal (LTG) pt will be able to do SLS for 15 sec B LTG Duration 10/25/23 KYLEIGH Impairment 9/50 Halfway Goal (LTG) Pt will show iimproved KYLEIGH score to no greater than 4/50 to show improved functional ability LTG Duration 10/25/23 activity Short Term Goal (STG) Pt will be able to do standard walks w/ w/o inc pain STG Duration 09/26 Halfway Goal (LTG) Pt will be able to walk greater than 1.5 mile without increased pain LTG Duration 10/25/23 strength Short Term Goal (STG) Pt will be indep w/HEP Dog Trainer Goal (LTG) Pt will score at least 4+/5 on all LE MMT B and at least 3/5 on LPM in all planes to show improved stabiltiy in order to dec pain. LTG Duration 10/25/23 Assessment Summary Assessment Pt good feedback painfree during all therex HEP review, requires cuing for trunk alignment for proper form. Pt better understanding and demonstration performance. Tolerated increase TA and hip abd progression of strengthening side hip abd against gravity and lateral step downs with HOs provided with no adverse affects, reports hip abd tiring. Pt reported good workout today, painfree. Physical Therapy Plan Frequency and Duration Duration of treatment (weeks) 10 Plan of Care Start Date 08/16/23 Plan of Care End Date 10/25/23 Therapeutic Interventions Therapeutic Interventions Balance Training,Gait Training ,Home Exercise Program,Joint Mobilizations,Manual Therapy, Neuromuscular Re-education, Orthotic/Prosthetic Management ,Patient/Caregiver Education, Self-Care/Home Management,Soft Tissue Mobilization,Taping, Therapeutic Activities, Therapeutic Exercises Modalities Cold Pack/Ice Massage,Electric Stimulation,Hot Packs, Traction- Mechanical, Ultrasound Next Visit Focus/Plan Next Note Type Treatment Note Next Visit Plan Recheck HEP as needed and proper form, added lat step down and hip abd last tx. Did add more appts? POC: manual to pelvis and lumbar spine and hip to dec pain
--- NOTE | 2023-09-29 11:15 | PT.OTN ---
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 He had LUISITO in 9 years. He has leg length discrepency which was better intially after Luisito but that got worse and did PT about 7-8 years ago. Leg length has gotten worse again. Wants program for stability. His back pain has been several years and has been getting worse. It is all R sided. He has always had a leg length since HS. WEars a small lift in R shoe. Cant walk as far. He walks w/his and gardens. Walks w/ 2-3x a week about 1.5 miles slowly- sometimes has pain at the end . Bikes a couple times a week with ebike. Treatment Goals Patient/Caregiver Goals get stabilization program to help maintain mobility PT-OP-C Subjective Start: 08/03/23 10:55 Freq: Status: Active Protocol: Document 09/29/23 10:35 SP (Rec: 09/29/23 11:18 SP [id number]) OP-PT Subjective Patient Comments Patient Comments Pt reports feels like doing better all the time, gauges how his gait is doing. PT-OP-D Balance Start: 08/03/23 10:55 Freq: Status: Active Protocol: Document 08/16/23 18:51 [facility] (Rec: 08/16/23 11:22 [facility] [id number]) Balance Tests Single Limb Standing Single Limb- Right 9 sec w/deviation Single Limb- Left 12 sec w/deviation PT-OP-F Manual Assessment Start: 08/03/23 10:55 Freq: Status: Active Protocol: Document 08/16/23 18:51 [facility] (Rec: 08/16/23 11:22 [facility] [id number]) Manual Assessments Joint Mobility Assessment Joint Mobility Assessment L iliac crest heigher and greater trochanter and fib head; PT-OP-G Mobility & Gait Start: 08/03/23 10:55 Freq: Status: Active Protocol: Document 08/16/23 18:51 [facility] (Rec: 08/16/23 11:22 [facility] [id number]) OP Gait Assessment Comments Gait Comments dec push off LLE; slight lat trunk leaning, overall dec pelvis motion PT-OP-J Posture/Palpation/Skin Start: 08/03/23 10:55 Freq: Status: Active Protocol: Document 08/16/23 18:51 [facility] (Rec: 08/16/23 11:22 [facility] [id number]) Posture Evaluation Keron Postural Classification System Keron Postural Classifications Posterior/Anterior Vertebral Compression Test 2 Lumbar Protective Mechanism Left AP 0 Lumbar Protective Mechanism Right AP 0 Lumbar Protective Mechanism Left PA 1 Lumbar Protective Mechanism Right PA 1 Comments Posture Comments L pelvic shear, LLE ER>R; inc kyphsosis fwd head PT-OP-K Range of Motion Start: 08/03/23 10:55 Freq: Status: Active Protocol: Document 08/16/23 18:51 [facility] (Rec: 08/16/23 11:22 [facility] [id number]) Lumbar Spine Range of Motion Lumbar Spine Active Percentage Flexion 50 Extension 30 Rotation Left 40 Rotation Right 40 Lateral Flexion Left 80 Lateral Flexion Right 60 Comments pain w/flex and ext; pain w/R SB PT-OP-L Special Tests Start: 08/03/23 10:55 Freq: Status: Active Protocol: Document 08/16/23 18:51 [facility] (Rec: 08/16/23 11:22 [facility] [id number]) Special Tests Lumbar Spine Special Tests Slump Test Results ng B Straight Leg Raise Test Results about 45 deg HS stretch PT-OP-M Strength Start: 08/03/23 10:55 Freq: Status: Active Protocol: Document 08/16/23 18:51 [facility] (Rec: 08/16/23 11:22 [facility] [id number]) Hip Strength Hip Manual Muscle Testing Right Flexion (L2) 3+ Fair+ Extension (S1) 3+ Fair+ Abduction 3+ Fair+ External Rotation 4 Good Internal Rotation 4- Good- Left Flexion (L2) 4- Good- Extension (S1) 3+ Fair+ Abduction 4- Good- External Rotation 4+ Good+ Internal Rotation 5 Normal Knee Strength Knee Manual Muscle Testing Right Flexion (S2) 5 Normal Extension (L3) 5 Normal Left Flexion (S2) 5 Normal Extension (L3) 5 Normal Ankle/Foot Strength Ankle and Foot Manual Muscle Testing Right Dorsiflexion (L4) 5 Normal Plantarflexion (S1) 5 Normal Left Dorsiflexion (L4) 5 Normal Plantarflexion (S1) 5 Normal Comments 20 heel raises B PT-OP-Q Treatments Start: 08/03/23 10:55 Freq: Status: Active Protocol: Document 09/29/23 10:35 SP (Rec: 09/29/23 11:18 SP [id number]) Therapeutic Exercises Sidelying Exercises hip abd Sidelying Exercise Name REviewed HEP Side bilateral Equipment Used roll into top arm stacked on side Reps/Minutes x10 Comments cued stacked alignment, TKE, posterolateral lift Sitting Exercises stretching Sitting Exercise Name 1. HS 2. LS Side bilateral Reps/Minutes 30 Comments cued straight back, hip hinge- good stretch STS Sitting Exercise Name eccentric sit/stand-tap to chair Side bilateral Resistance AROM> 5# db> 10# DB Reps/Minutes x10 each resistance Comments cued hip hinge/ knee flexion slow descend- better form/stab Standing Exercises fwd step down Standing Exercise Name trialed in PT Resistance L>R weakness Equipment Used 8 step, 1 rail support Reps/Minutes 10 Comments cued slower pacing and not momentum lateral step dowon Standing Exercise Name reviewed HEP Side bilateral Equipment Used rail support 1 UE 30% Reps/Minutes 2x10 Comments cued knees behind/with mid foot Gait Training Gait Activity dynamic walking Description HTs, Fwd/bwd, EC, carry cupwater Device Used 0 Distance/Duration 50 ft hallway multiple laps Treatment Focus stability, midline righting during dynamic mob Comments found lists to R>L during carrying cupwater and EC, cues for correcting. Neuro Re-Education Treatment Balance Activities tandem walking Details added to HEP Surface floor Reps/Duration carpet seam @ ladder- x 5 laps Comments cued core, tall, fwd wt shift into front leg, midline trunk stab hurdles Surface 6 hurdles, foam Reps/Duration 6 laps Comments cued tall posture, rhomboid fac, wt shift into Fwd LE, less lateral over wt shift PT-OP-T Assessment and Plan Start: 08/03/23 10:55 Freq: Status: Active Protocol: Document 09/29/23 10:35 SP (Rec: 09/29/23 11:18 SP [id number]) Physical Therapy Assessment Goals balance Computer Tape Librarian Goal (LTG) pt will be able to do SLS for 15 sec B LTG Duration 10/25/23 KYLEIGH Impairment 9/50 Halfway Goal (LTG) Pt will show iimproved KYLEIGH score to no greater than 4/50 to show improved functional ability LTG Duration 10/25/23 activity Short Term Goal (STG) Pt will be able to do standard walks w/ w/o inc pain STG Duration 09/26 Halfway Goal (LTG) Pt will be able to walk greater than 1.5 mile without increased pain LTG Duration 10/25/23 strength Short Term Goal (STG) Pt will be indep w/HEP Computer Tape Librarian Goal (LTG) Pt will score at least 4+/5 on all LE MMT B and at least 3/5 on LPM in all planes to show improved stabiltiy in order to dec pain. LTG Duration 10/25/23 Assessment Summary Assessment Pt improved core, hip abd engagement and posturing corrections smaller base balance activities with no back or hip pain. Added tandem to HEP declined HOs. Pt improved understanding of trunk righting midline awareness during challenge dynamic gait head turns an dcarrying items, found listing R and over scissor decreased DANN, improved stability with cues for increased DANN and slower pacing able self utilize postural musculature better, carryover during uneven hurdles and tandem walking. Will continue tandem home for carryover to allow increased stabililty uneven surface in community. Physical Therapy Plan Frequency and Duration Duration of treatment (weeks) 10 Plan of Care Start Date 08/16/23 Plan of Care End Date 10/25/23 Therapeutic Interventions Therapeutic Interventions Balance Training,Gait Training ,Home Exercise Program,Joint Mobilizations,Manual Therapy, Neuromuscular Re-education, Orthotic/Prosthetic Management ,Patient/Caregiver Education, Self-Care/Home Management,Soft Tissue Mobilization,Taping, Therapeutic Activities, Therapeutic Exercises Modalities Cold Pack/Ice Massage,Electric Stimulation,Hot Packs, Traction- Mechanical, Ultrasound Next Visit Focus/Plan Next Note Type Treatment Note Next Visit Plan Recheck HEP as needed core and LE strengthening and proper form, added tandem walking, declined HOs. POC: manual to pelvis and lumbar spine and hip to dec pain
--- NOTE | 2023-10-06 12:17 | PT.OTN ---
Current Diagnoses Other chronic pain (10/06/23) Pain in right hip (10/06/23) Low back pain, unspecified (10/06/23) Presence of right artificial hip joint (10/06/23) Physical Therapy Treatment Note PT-OP-A Visit Information Start: 08/03/23 10:55 Freq: Status: Active Protocol: Document 10/06/23 10:34 [facility] (Rec: 10/06/23 12:17 [facility] [id number]) Out-Patient Physical Therapy Visit Information Visit Information Visit Type Treatment Note Visit Note 02/15 Visit Start Time 10:32 Visit Stop Time 11:15 Visit Number 7 Number of SOYFREEZE OPERATOR Visits 0 PT-OP-B Current Condition Start: 08/03/23 10:55 Freq: Status: Active Protocol: Document 08/16/23 18:51 [facility] (Rec: 08/16/23 11:22 [facility] [id number]) Current Condition History of Current Condition Current Complaints R SI and lower lumbar History of Current Condition Pt reports the back and hip pain has been going on for several years. He had KELLI in 9 years. 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 Leg length has gotten worse again. Wants program for stability. His back pain has been several years and has been getting worse. It is all R sided. He has always had a leg length since HS. WEars a small lift in R shoe. Cant walk as far. He walks w/his and gardens. Walks w/ 2-3x a week about 1.5 miles slowly- sometimes has pain at the end . Bikes a couple times a week with ebike. Treatment Goals Patient/Caregiver Goals get stabilization program to help maintain mobility PT-OP-C Subjective Start: 08/03/23 10:55 Freq: Status: Active Protocol: Document 10/06/23 10:34 [facility] (Rec: 10/06/23 12:17 [facility] [id number]) OP-PT Subjective Patient Comments Patient Comments Things are pretty good except feeling L leg is feeling a little weaker. Feels like gait is better. Once he gets stretched out feels better. Patient Reported Progress Improving PT-OP-D Balance Start: 08/03/23 10:55 Freq: Status: Active Protocol: Document 08/16/23 18:51 [facility] (Rec: 08/16/23 11:22 [facility] [id number]) Balance Tests Single Limb Standing Single Limb- Right 9 sec w/deviation Single Limb- Left 12 sec w/deviation PT-OP-F Manual Assessment Start: 08/03/23 10:55 Freq: Status: Active Protocol: Document 08/16/23 18:51 [facility] (Rec: 08/16/23 11:22 [facility] [id number]) Manual Assessments Joint Mobility Assessment Joint Mobility Assessment L iliac crest heigher and greater trochanter and fib head; PT-OP-G Mobility & Gait Start: 08/03/23 10:55 Freq: Status: Active Protocol: Document 08/16/23 18:51 [facility] (Rec: 08/16/23 11:22 [facility] [id number]) OP Gait Assessment Comments Gait Comments dec push off LLE; slight lat trunk leaning, overall dec pelvis motion PT-OP-J Posture/Palpation/Skin Start: 08/03/23 10:55 Freq: Status: Active Protocol: Document 08/16/23 18:51 [facility] (Rec: 08/16/23 11:22 [facility] [id number]) Posture Evaluation Keron Postural Classification System Keron Postural Classifications Posterior/Anterior Vertebral Compression Test 2 Lumbar Protective Mechanism Left AP 0 Lumbar Protective Mechanism Right AP 0 Lumbar Protective Mechanism Left PA 1 Lumbar Protective Mechanism Right PA 1 Comments Posture Comments L pelvic shear, LLE ER>R; inc kyphsosis fwd head PT-OP-K Range of Motion Start: 08/03/23 10:55 Freq: Status: Active Protocol: Document 08/16/23 18:51 [facility] (Rec: 08/16/23 11:22 [facility] [id number]) Lumbar Spine Range of Motion Lumbar Spine Active Percentage Flexion 50 Extension 30 Rotation Left 40 Rotation Right 40 Lateral Flexion Left 80 Lateral Flexion Right 60 Comments pain w/flex and ext; pain w/R SB PT-OP-L Special Tests Start: 08/03/23 10:55 Freq: Status: Active Protocol: Document 08/16/23 18:51 [facility] (Rec: 08/16/23 11:22 [facility] [id number]) Special Tests Lumbar Spine Special Tests Slump Test Results ng B Straight Leg Raise Test Results about 45 deg HS stretch PT-OP-M Strength Start: 12/26/23 10:55 Freq: Status: Active Protocol: Document 08/16/23 18:51 [facility] (Rec: 08/16/23 11:22 [facility] [id number]) Hip Strength Hip Manual Muscle Testing Right Flexion (L2) 3+ Fair+ Extension (S1) 3+ Fair+ Abduction 3+ Fair+ External Rotation 4 Good Internal Rotation 4- Good- Left Flexion (L2) 4- Good- Extension (S1) 3+ Fair+ Abduction 4- Good- External Rotation 4+ Good+ Internal Rotation 5 Normal Knee Strength Knee Manual Muscle Testing Right Flexion (S2) 5 Normal Extension (L3) 5 Normal Left Flexion (S2) 5 Normal Extension (L3) 5 Normal Ankle/Foot Strength Ankle and Foot Manual Muscle Testing Right Dorsiflexion (L4) 5 Normal Plantarflexion (S1) 5 Normal Left Dorsiflexion (L4) 5 Normal Plantarflexion (S1) 5 Normal Comments 20 heel raises B PT-OP-Q Treatments Start: 08/03/23 10:55 Freq: Status: Active Protocol: Document 10/06/23 10:34 [facility] (Rec: 10/06/23 12:17 [facility] [id number]) Therapeutic Exercises Supine Exercises isometric Supine Exercise Name DL flex Side bilateral Reps/Minutes 30SH Comments good form, cued allow head rest on pillow LTR Supine Exercise Name HEP reviewed Side bilateral Reps/Minutes 7 min Comments progressively inc ROM and cues for core Manual Therapy Treatment Soft Tissue Mobilization hip flexor Body Location R Mobilization Type Sustained Pressure Intensity/Depth Moderate Body Position Hooklying Comments w/AAROM hip flex hip Body Location R glutes and ITB lat & add Mobilization Type Rolling Intensity/Depth Moderate Body Position Hooklying Comments w/hip ER Joint Mobilizations hip Comments R ER free the ball FM B inf FM PT-OP-T Assessment and Plan Start: 08/03/23 10:55 Freq: Status: Active Protocol: Document 10/06/23 10:34 [facility] (Rec: 10/06/23 12:17 [facility] [id number]) Physical Therapy Assessment Goals balance Mine Laborer Goal (LTG) pt will be able to do SLS for 15 sec B LTG Duration 10/25/23 KYLEIGH Impairment 9/50 Fpc Goal (LTG) Pt will show iimproved KYLEIGH score to no greater than 4/50 to show improved functional ability LTG Duration 10/25/23 activity Short Term Goal (STG) Pt will be able to do standard walks w/ w/o inc pain STG Duration 09/26 Fpc Goal (LTG) Pt will be able to walk greater than 1.5 mile without increased pain LTG Duration 10/25/23 strength Short Term Goal (STG) Pt will be indep w/HEP Fpc Goal (LTG) Pt will score at least 4+/5 on all LE MMT B and at least 3/5 on LPM in all planes to show improved stabiltiy in order to dec pain. LTG Duration 10/25/23 Assessment Summary Assessment Pt required significant cues and work w/LTR to get core engagement during exercise. Improved after mult reps of progressively inc ROM. Pt had less than 90 deg hip flex B which likely affets his back pain for sitting and transitions from sit. Improved to >90 B after manual and improved ER R. Physical Therapy Plan Frequency and Duration Duration of treatment (weeks) 10 Plan of Care Start Date 08/16/23 Plan of Care End Date 10/25/23 Next Visit Focus/Plan Next Note Type Treatment Note Next Visit Plan Recheck HEP as needed . POC: manual to pelvis and lumbar spine and hip to dec pain
--- NOTE | 2023-10-13 10:39 | PT.OTN ---
Current Diagnoses Other chronic pain (10/13/23) Pain in right hip (10/13/23) Low back pain, unspecified (10/13/23) Presence of right artificial hip joint (10/13/23) Physical Therapy Treatment Note PT-OP-A Visit Information Start: 08/03/23 10:55 Freq: Status: Active Protocol: Document 10/13/23 08:19 [facility] (Rec: 10/13/23 09:04 [facility] [id number]) Out-Patient Physical Therapy Visit Information Visit Information Visit Type Progress Note Visit Note 08/18 Visit Start Time 08:18 Visit Stop Time 09:00 Visit Number 8 Number of WELCOME DESK AGENT Visits 0 PT-OP-B Current Condition Start: 08/03/23 10:55 Freq: Status: Active Protocol: Document 08/16/23 18:51 [facility] (Rec: 08/16/23 11:22 [facility] [id number]) Current Condition History of Current Condition Current Complaints R SI and lower lumbar History of Current Condition Pt reports the back and hip pain has been going on for several years. He had LUISIOT in 9 years. He has leg length discrepency which was better intially after Luisito but that got worse and did PT about 7-8 years ago. Leg length has gotten worse again. Wants program for stability. His back pain has been several years and has been getting worse. It is all R sided. He has always had a leg length since HS. WEars a small lift in R shoe. Cant walk as far. He walks w/his and gardens. Walks w/ 2-3x a week about 1.5 miles slowly- sometimes has pain at the end . Bikes a couple times a week with ebike. Treatment Goals Patient/Caregiver Goals get stabilization program to help maintain mobility PT-OP-C Subjective Start: 08/03/23 10:55 Freq: Status: Active Protocol: Document 10/13/23 08:19 [facility] (Rec: 10/13/23 09:04 [facility] [id number]) OP-PT Subjective Patient Comments Patient Comments Pt reports feels like gait is more even Patient Reported Progress Improving Patient Questionnaires Oswestry Low Back Index Oswestry Score 15/50 PT-OP-D Balance Start: 08/03/23 10:55 Freq: Status: Active Protocol: Document 10/13/23 08:19 [facility] (Rec: 10/13/23 09:04 [facility] [id number]) Balance Tests Single Limb Standing Single Limb- Right 15 sec w/deviation Single Limb- Left 15 sec w/deviation PT-OP-F Manual Assessment Start: 08/03/23 10:55 Freq: Status: Active Protocol: Document 08/16/23 18:51 [facility] (Rec: 08/16/23 11:22 [facility] [id number]) Manual Assessments Joint Mobility Assessment Joint Mobility Assessment L iliac crest heigher and greater trochanter and fib head; PT-OP-G Mobility & Gait Start: 08/03/23 10:55 Freq: Status: Active Protocol: Document 08/16/23 18:51 [facility] (Rec: 08/16/23 11:22 [facility] [id number]) OP Gait Assessment Comments Gait Comments dec push off LLE; slight lat trunk leaning, overall dec pelvis motion PT-OP-J Posture/Palpation/Skin Start: 08/03/23 10:55 Freq: Status: Active Protocol: Document 10/13/23 08:19 [facility] (Rec: 10/13/23 09:04 [facility] [id number]) Posture Evaluation Keron Postural Classification System Keron Postural Classifications Posterior/Anterior Lumbar Protective Mechanism Right AP 0 Lumbar Protective Mechanism Left PA 2 Lumbar Protective Mechanism Right PA 1 PT-OP-K Range of Motion Start: 08/03/23 10:55 Freq: Status: Active Protocol: Document 08/16/23 18:51 [facility] (Rec: 08/16/23 11:22 [facility] [id number]) Lumbar Spine Range of Motion Lumbar Spine Active Percentage Flexion 50 Extension 30 Rotation Left 40 Rotation Right 40 Lateral Flexion Left 80 Lateral Flexion Right 60 Comments pain w/flex and ext; pain w/R SB PT-OP-L Special Tests Start: 08/03/23 10:55 Freq: Status: Active Protocol: Document 08/16/23 18:51 [facility] (Rec: 08/16/23 11:22 [facility] [id number]) Special Tests Lumbar Spine Special Tests Slump Test Results ng B Straight Leg Raise Test Results about 45 deg HS stretch PT-OP-M Strength Start: 08/03/23 10:55 Freq: Status: Active Protocol: Document 10/13/23 08:19 [facility] (Rec: 10/13/23 09:04 [facility] [id number]) Hip Strength Hip Manual Muscle Testing Right Flexion (L2) 4 Good Extension (S1) 4- Good- Abduction 4+ Good+ Adduction 4- Good- External Rotation 5 Normal Internal Rotation 5 Normal Left Flexion (L2) 4 Good Extension (S1) 4- Good- Abduction 4 Good Adduction 4 Good External Rotation 5 Normal Internal Rotation 5 Normal Knee Strength Knee Manual Muscle Testing Right Flexion (S2) 5 Normal Extension (L3) 5 Normal Left Flexion (S2) 5 Normal Extension (L3) 5 Normal Ankle/Foot Strength Ankle and Foot Manual Muscle Testing Right Dorsiflexion (L4) 5 Normal Plantarflexion (S1) 5 Normal Left Dorsiflexion (L4) 5 Normal Plantarflexion (S1) 5 Normal Comments 20 heel raises B PT-OP-Q Treatments Start: 08/03/23 10:55 Freq: Status: Active Protocol: Document 10/13/23 08:19 [facility] (Rec: 10/13/23 09:04 [facility] [id number]) Therapeutic Exercises Supine Exercises LTR Supine Exercise Name HEP reviewed Side bilateral Reps/Minutes 5 min Comments progressively inc ROM and cues for core Other Exercises isometrics Other Exercise Name B MMT and LPM B Side bilateral Reps/Minutes 8 min Manual Therapy Treatment Soft Tissue Mobilization hip flexor Body Location B Mobilization Type Sustained Pressure Intensity/Depth Moderate Body Position Hooklying Comments w/AAROM hip flex & IR/ER Joint Mobilizations hip Comments L inf glide FM innominate Joint L flex and ER FM hooklying PT-OP-T Assessment and Plan Start: 08/03/23 10:55 Freq: Status: Active Protocol: Document 10/13/23 08:19 [facility] (Rec: 10/13/23 09:04 [facility] [id number]) Physical Therapy Assessment Goals balance Half-Way Goal (LTG) pt will be able to do SLS for 15 sec B LTG Duration achieved 3/6 KYLEIGH Impairment 9/50 Half-Way Goal (LTG) Pt will show iimproved KYLEIGH score to no greater than 4/50 to show improved functional ability LTG Duration 10/25/23 activity Short Term Goal (STG) Pt will be able to do standard walks w/ w/o inc pain 3/-still stiff getting upright; feels like gait is better, stiff STG Duration 11/07 Half-Way Goal (LTG) Pt will be able to walk greater than 1.5 mile without increased pain 3/6-has not tried d/t weather LTG Duration 12/21 strength Short Term Goal (STG) Pt will be indep w/HEP STG Duration achieved advancing as able Half-Way Goal (LTG) Pt will score at least 4+/5 on all LE MMT B and at least 3/5 on LPM in all planes to show improved stabiltiy in order to dec pain. 10/12-improved LTG Duration 12/24 Assessment Summary Assessment Pt is making excellent progress w/PT w/reported much improved gait and overll adec in pain along w/improvement in strength. pt to cont PT to improve functional ability. Improved danielito test after manual Physical Therapy Plan Frequency and Duration Frequency of Treatment 1-2x/wk Duration of treatment (weeks) 10 Plan of Care Start Date 10/13/23 Plan of Care End Date 12/22/23 Therapeutic Interventions Therapeutic Interventions Balance Training,Gait Training ,Home Exercise Program,Joint Mobilizations,Manual Therapy, Neuromuscular Re-education, Orthotic/Prosthetic Management ,Patient/Caregiver Education, Self-Care/Home Management,Soft Tissue Mobilization,Taping, Therapeutic Activities, Therapeutic Exercises Modalities Cold Pack/Ice Massage,Electric Stimulation,Hot Packs, Traction- Mechanical, Ultrasound Next Visit Focus/Plan Next Note Type Treatment Note Next Visit Plan Recheck HEP as needed . POC: manual to pelvis and lumbar spine and hip to dec pain
--- NOTE | 2023-10-13 10:39 | PT.OPPOC ---
Physical, Occupational & Speech Therapy At [facility] Current Diagnoses Other chronic pain (10/13/23) Pain in right hip (10/13/23) Low back pain, unspecified (10/13/23) Presence of right artificial hip joint (10/13/23) Visit Care Team Role Provider Type Josefa Harp MD Attending Provider Non-Staff Family Provider Primary Care Provider Referring Provider Specialty: Medical Address: [address] [place] [address] [address], [place], [address] Email: Plan Of Care PT-OP-T Assessment and Plan Start: 08/03/23 10:55 Freq: Status: Active Protocol: Document 10/13/23 08:19 [facility] (Rec: 10/13/23 09:04 [facility] [id number]) Physical Therapy Assessment Goals balance Commercial Coordinator Goal (LTG) pt will be able to do SLS for 15 sec B LTG Duration achieved 3/6 KYLEIGH Impairment 9/50 Commercial Coordinator Goal (LTG) Pt will show iimproved KYLEIGH score to no greater than 4/50 to show improved functional ability LTG Duration 10/25/23 activity Short Term Goal (STG) Pt will be able to do standard walks w/ w/o inc pain 3/6-still stiff getting upright; feels like gait is better, stiff STG Duration 4/ Correction Goal (LTG) Pt will be able to walk greater than 1.5 mile without increased pain 36-has not tried d/t weather LTG Duration 12/21 strength Short Term Goal (STG) Pt will be indep w/HEP STG Duration achieved advancing as able Correction Goal (LTG) Pt will score at least 4+/5 on all LE MMT B and at least 3/5 on LPM in all planes to show improved stabiltiy in order to dec pain. 3/6-improved LTG Duration 12/24 Assessment Summary Assessment Pt is making excellent progress w/PT w/reported much improved gait and overll adec in pain along w/improvement in strength. pt to cont PT to improve functional ability. Improved danielito test after manual Physical Therapy Plan Frequency and Duration Frequency of Treatment 1-2x/wk Duration of treatment (weeks) 10 Plan of Care Start Date 10/13/23 Plan of Care End Date 12/22/23 Therapeutic Interventions Therapeutic Interventions Balance Training,Gait Training ,Home Exercise Program,Joint Mobilizations,Manual Therapy, Neuromuscular Re-education, Orthotic/Prosthetic Management ,Patient/Caregiver Education, Self-Care/Home Management,Soft Tissue Mobilization,Taping, Therapeutic Activities, Therapeutic Exercises Modalities Cold Pack/Ice Massage,Electric Stimulation,Hot Packs, Traction- Mechanical, Ultrasound Next Visit Focus/Plan Next Note Type Treatment Note Next Visit Plan Recheck HEP as needed . POC: manual to pelvis and lumbar spine and hip to dec pain Plan of Care Dates Plan of Care Start Date 10/13/23 Plan of Care End Date 12/22/23 Electronically Signed by: France Haas, PT 10/13/23 2941 If you are in agreement with this Plan of Care, please return a signed and dated copy. I have reviewed this Plan of Care and certify that the skilled therapy services above are required to meet the patient?s needs. Physician Signature Date Printed Name and Credentials Clinical Instructor Signature Printed Name and Credentials
--- NOTE | 2023-11-03 13:21 | PT.OTN ---
Current Diagnoses Other chronic pain (11/03/23) Pain in right hip (11/03/23) Low back pain, unspecified (11/03/23) Presence of right artificial hip joint (11/03/23) Physical Therapy Treatment Note PT-OP-A Visit Information Start: 08/03/23 10:55 Freq: Status: Active Protocol: Document 11/03/23 10:38 [facility] (Rec: 11/03/23 13:21 [facility] [id number]) Out-Patient Physical Therapy Visit Information Visit Information Visit Type Treatment Note Visit Note 09/18 Visit Start Time 10:37 Visit Stop Time 11:16 Visit Number 9 Number of LEDGE MAN Visits 0 PT-OP-B Current Condition Start: 08/03/23 10:55 Freq: Status: Active Protocol: Document 08/16/23 18:51 [facility] (Rec: 08/16/23 11:22 [facility] [id number]) Current Condition History of Current Condition Current Complaints R SI and lower lumbar History of Current Condition Pt reports the back and hip pain has been going on for several years. He had KELLI in 9 years. 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 Leg length has gotten worse again. Wants program for stability. His back pain has been several years and has been getting worse. It is all R sided. He has always had a leg length since HS. WEars a small lift in R shoe. Cant walk as far. He walks w/his and gardens. Walks w/ 2-3x a week about 1.5 miles slowly- sometimes has pain at the end . Bikes a couple times a week with ebike. Treatment Goals Patient/Caregiver Goals get stabilization program to help maintain mobility PT-OP-C Subjective Start: 08/03/23 10:55 Freq: Status: Active Protocol: Document 11/03/23 10:38 [facility] (Rec: 11/03/23 13:21 [facility] [id number]) OP-PT Subjective Patient Comments Patient Comments Pt was rearended on I 5 about 2 weeks ago but has no change in back pain. Reports he feels like it is getting better. Getting up after being sitting for a long time, feels stiff. Pt reprots he has been doing gardening and back is holding up if he is careful Patient Reported Progress Improving PT-OP-D Balance Start: 08/03/23 10:55 Freq: Status: Active Protocol: Document 10/13/23 08:19 [facility] (Rec: 10/13/23 09:04 [facility] [id number]) Balance Tests Single Limb Standing Single Limb- Right 15 sec w/deviation Single Limb- Left 15 sec w/deviation PT-OP-F Manual Assessment Start: 08/03/23 10:55 Freq: Status: Active Protocol: Document 08/16/23 18:51 [facility] (Rec: 08/16/23 11:22 [facility] [id number]) Manual Assessments Joint Mobility Assessment Joint Mobility Assessment L iliac crest heigher and greater trochanter and fib head; PT-OP-G Mobility & Gait Start: 08/03/23 10:55 Freq: Status: Active Protocol: Document 08/16/23 18:51 [facility] (Rec: 08/16/23 11:22 [facility] [id number]) OP Gait Assessment Comments Gait Comments dec push off LLE; slight lat trunk leaning, overall dec pelvis motion PT-OP-J Posture/Palpation/Skin Start: 08/03/23 10:55 Freq: Status: Active Protocol: Document 10/13/23 08:19 [facility] (Rec: 10/13/23 09:04 [facility] [id number]) Posture Evaluation Keron Postural Classification System Keron Postural Classifications Posterior/Anterior Lumbar Protective Mechanism Right AP 0 Lumbar Protective Mechanism Left PA 2 Lumbar Protective Mechanism Right PA 1 PT-OP-K Range of Motion Start: 08/03/23 10:55 Freq: Status: Active Protocol: Document 08/16/23 18:51 [facility] (Rec: 08/16/23 11:22 [facility] [id number]) Lumbar Spine Range of Motion Lumbar Spine Active Percentage Flexion 50 Extension 30 Rotation Left 40 Rotation Right 40 Lateral Flexion Left 80 Lateral Flexion Right 60 Comments pain w/flex and ext; pain w/R SB PT-OP-L Special Tests Start: 08/03/23 10:55 Freq: Status: Active Protocol: Document 08/16/23 18:51 [facility] (Rec: 08/16/23 11:22 [facility] [id number]) Special Tests Lumbar Spine Special Tests Slump Test Results ng B Straight Leg Raise Test Results about 45 deg HS stretch PT-OP-M Strength Start: 12/26/23 10:55 Freq: Status: Active Protocol: Document 10/13/23 08:19 [facility] (Rec: 10/13/23 09:04 [facility] [id number]) Hip Strength Hip Manual Muscle Testing Right Flexion (L2) 4 Good Extension (S1) 4- Good- Abduction 4+ Good+ Adduction 4- Good- External Rotation 5 Normal Internal Rotation 5 Normal Left Flexion (L2) 4 Good Extension (S1) 4- Good- Abduction 4 Good Adduction 4 Good External Rotation 5 Normal Internal Rotation 5 Normal Knee Strength Knee Manual Muscle Testing Right Flexion (S2) 5 Normal Extension (L3) 5 Normal Left Flexion (S2) 5 Normal Extension (L3) 5 Normal Ankle/Foot Strength Ankle and Foot Manual Muscle Testing Right Dorsiflexion (L4) 5 Normal Plantarflexion (S1) 5 Normal Left Dorsiflexion (L4) 5 Normal Plantarflexion (S1) 5 Normal Comments 20 heel raises B PT-OP-Q Treatments Start: 08/03/23 10:55 Freq: Status: Active Protocol: Document 11/03/23 10:38 [facility] (Rec: 11/03/23 13:21 [facility] [id number]) Gym Equipment Therapeutic Ball seated Ball Size/Color 75 cm Body Position Sitting Reps/Duration 15 ea Comments 1. chops B 2. B UE lift w/rot Gait Training Gait Activity step up Comments 8 in step w/alt october w/cues for full knee ext at end range x10 B-rail prn gait Comments Start in neutral posture w/ cues for push off and arm swing during 6x50ft resisted gait Device Used dowel Distance/Duration 50ftx2 gait at wall Comments for post dep/ant elevation 6x5sec B-inc time for working on form Manual Therapy Treatment Soft Tissue Mobilization LB Body Location R along iliac crest, sacrum, SI, lower lumbar paraspinals, sacral multifid Mobilization Type Rolling Intensity/Depth Moderate Body Position Sidelying Comments w/ post dep Joint Mobilizations lumbar Comments gapping L3-4, L4-5, L5-S1 w/ post dep PT-OP-T Assessment and Plan Start: 08/03/23 10:55 Freq: Status: Active Protocol: Document 11/03/23 10:38 [facility] (Rec: 11/03/23 13:21 [facility] [id number]) Physical Therapy Assessment Goals balance Inspector Wreath Goal (LTG) pt will be able to do SLS for 15 sec B LTG Duration achieved 3/6 KYLEIGH Impairment 9/50 Intermediate Goal (LTG) Pt will show iimproved KYLEIGH score to no greater than 4/50 to show improved functional ability LTG Duration 10/25/23 activity Short Term Goal (STG) Pt will be able to do standard walks w/ w/o inc pain 3-still stiff getting upright; feels like gait is better, stiff STG Duration 11/07 Intermediate Goal (LTG) Pt will be able to walk greater than 1.5 mile without increased pain 10/12-has not tried d/t weather LTG Duration 12/21 strength Short Term Goal (STG) Pt will be indep w/HEP STG Duration achieved advancing as able Intermediate Goal (LTG) Pt will score at least 4+/5 on all LE MMT B and at least 3/5 on LPM in all planes to show improved stabiltiy in order to dec pain. 10/12-improved LTG Duration 12/24 Assessment Summary Assessment pt had improved gait after cueing and work on arm swing and push off and understanding how to get full knee ex.t He tends to avoidfull push off. Physical Therapy Plan Frequency and Duration Frequency of Treatment 1-2x/wk Duration of treatment (weeks) 10 Plan of Care Start Date 10/13/23 Plan of Care End Date 12/22/23 Next Visit Focus/Plan Next Note Type Treatment Note Next Visit Plan Recheck HEP as needed . Work on posture and gait POC: manual to pelvis and lumbar spine and hip to dec pain
--- NOTE | 2023-11-10 11:59 | PT.OTN ---
Current Diagnoses Other chronic pain (11/10/23) Pain in right hip (11/10/23) Low back pain, unspecified (11/10/23) Presence of right artificial hip joint (11/10/23) Physical Therapy Treatment Note PT-OP-A Visit Information Start: 08/03/23 10:55 Freq: Status: Active Protocol: Document 11/10/23 10:30 [facility] (Rec: 11/10/23 11:58 [facility] [id number]) Out-Patient Physical Therapy Visit Information Visit Information Visit Type Treatment Note Visit Note 10/16 Visit Start Time 10:32 Visit Stop Time 11:15 Visit Number 10 Number of MORTAR MAN Visits 0 PT-OP-B Current Condition Start: 08/03/23 10:55 Freq: Status: Active Protocol: Document 08/16/23 18:51 [facility] (Rec: 08/16/23 11:22 [facility] [id number]) Current Condition History of Current Condition Current Complaints R SI and lower lumbar History of Current Condition Pt reports the back and hip pain has been going on for several years. He had KELLI in 9 years. 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 Leg length has gotten worse again. Wants program for stability. His back pain has been several years and has been getting worse. It is all R sided. He has always had a leg length since HS. WEars a small lift in R shoe. Cant walk as far. He walks w/his and gardens. Walks w/ 2-3x a week about 1.5 miles slowly- sometimes has pain at the end . Bikes a couple times a week with ebike. Treatment Goals Patient/Caregiver Goals get stabilization program to help maintain mobility PT-OP-C Subjective Start: 08/03/23 10:55 Freq: Status: Active Protocol: Document 11/10/23 10:30 [facility] (Rec: 11/10/23 11:58 [facility] [id number]) OP-PT Subjective Patient Comments Patient Comments Pt reports back is doing much better. Has done okay in the garden. Is stiff when getting up from sitting and laying down Patient Reported Progress Improving PT-OP-D Balance Start: 08/03/23 10:55 Freq: Status: Active Protocol: Document 10/13/23 08:19 [facility] (Rec: 10/13/23 09:04 [facility] [id number]) Balance Tests Single Limb Standing Single Limb- Right 15 sec w/deviation Single Limb- Left 15 sec w/deviation PT-OP-F Manual Assessment Start: 08/03/23 10:55 Freq: Status: Active Protocol: Document 08/16/23 18:51 [facility] (Rec: 08/16/23 11:22 [facility] [id number]) Manual Assessments Joint Mobility Assessment Joint Mobility Assessment L iliac crest heigher and greater trochanter and fib head; PT-OP-G Mobility & Gait Start: 08/03/23 10:55 Freq: Status: Active Protocol: Document 08/16/23 18:51 [facility] (Rec: 08/16/23 11:22 [facility] [id number]) OP Gait Assessment Comments Gait Comments dec push off LLE; slight lat trunk leaning, overall dec pelvis motion PT-OP-J Posture/Palpation/Skin Start: 08/03/23 10:55 Freq: Status: Active Protocol: Document 10/13/23 08:19 [facility] (Rec: 10/13/23 09:04 [facility] [id number]) Posture Evaluation Keron Postural Classification System Keron Postural Classifications Posterior/Anterior Lumbar Protective Mechanism Right AP 0 Lumbar Protective Mechanism Left PA 2 Lumbar Protective Mechanism Right PA 1 PT-OP-K Range of Motion Start: 08/03/23 10:55 Freq: Status: Active Protocol: Document 08/16/23 18:51 [facility] (Rec: 08/16/23 11:22 [facility] [id number]) Lumbar Spine Range of Motion Lumbar Spine Active Percentage Flexion 50 Extension 30 Rotation Left 40 Rotation Right 40 Lateral Flexion Left 80 Lateral Flexion Right 60 Comments pain w/flex and ext; pain w/R SB PT-OP-L Special Tests Start: 08/03/23 10:55 Freq: Status: Active Protocol: Document 08/16/23 18:51 [facility] (Rec: 08/16/23 11:22 [facility] [id number]) Special Tests Lumbar Spine Special Tests Slump Test Results ng B Straight Leg Raise Test Results about 45 deg HS stretch PT-OP-M Strength Start: 08/03/23 10:55 Freq: Status: Active Protocol: Document 10/13/23 08:19 [facility] (Rec: 10/13/23 09:04 [facility] [id number]) Hip Strength Hip Manual Muscle Testing Right Flexion (L2) 4 Good Extension (S1) 4- Good- Abduction 4+ Good+ Adduction 4- Good- External Rotation 5 Normal Internal Rotation 5 Normal Left Flexion (L2) 4 Good Extension (S1) 4- Good- Abduction 4 Good Adduction 4 Good External Rotation 5 Normal Internal Rotation 5 Normal Knee Strength Knee Manual Muscle Testing Right Flexion (S2) 5 Normal Extension (L3) 5 Normal Left Flexion (S2) 5 Normal Extension (L3) 5 Normal Ankle/Foot Strength Ankle and Foot Manual Muscle Testing Right Dorsiflexion (L4) 5 Normal Plantarflexion (S1) 5 Normal Left Dorsiflexion (L4) 5 Normal Plantarflexion (S1) 5 Normal Comments 20 heel raises B PT-OP-Q Treatments Start: 08/03/23 10:55 Freq: Status: Active Protocol: Document 11/10/23 10:30 [facility] (Rec: 11/10/23 11:58 [facility] [id number]) Gym Equipment Therapeutic Ball seated Ball Size/Color 75 cm Body Position Sitting Reps/Duration 15 ea Comments 1. chops B 2. B UE lift w/rot Gait Training Gait Activity step up Comments 8 in step w/alt october w/cues for full knee ext at end range x10 B-rail prn gait Comments Start in neutral posture w/ cues for push off and arm swing during 8x50ft resisted gait Device Used dowel Distance/Duration 50ftx2 gait at wall Comments for post dep/ant elevation 6x5sec B-inc time for working on form Manual Therapy Treatment Soft Tissue Mobilization LB Body Location B ES Mobilization Type Rolling Comments w/hip flex Joint Mobilizations lumbar Comments gapping L4-5, L5-S1 w/hip flex PT-OP-T Assessment and Plan Start: 08/03/23 10:55 Freq: Status: Active Protocol: Document 11/10/23 10:30 [facility] (Rec: 11/10/23 11:58 [facility] [id number]) Physical Therapy Assessment Goals balance Professor Computer Science Goal (LTG) pt will be able to do SLS for 15 sec B LTG Duration achieved 3/6 KYLEIGH Impairment 9/50 Professor Computer Science Goal (LTG) Pt will show iimproved KYLEIGH score to no greater than 4/50 to show improved functional ability LTG Duration 10/25/23 activity Short Term Goal (STG) Pt will be able to do standard walks w/ w/o inc pain 3/6-still stiff getting upright; feels like gait is better, stiff STG Duration 11/07 Professor Computer Science Goal (LTG) Pt will be able to walk greater than 1.5 mile without increased pain 6-has not tried d/t weather LTG Duration 12/21 strength Short Term Goal (STG) Pt will be indep w/HEP STG Duration achieved advancing as able Care Home Goal (LTG) Pt will score at least 4+/5 on all LE MMT B and at least 3/5 on LPM in all planes to show improved stabiltiy in order to dec pain. 10/12-improved LTG Duration 12/24 Assessment Summary Assessment Pt cont to improve w/gait mechanics w/cueing. Imrpoved spinal motion w/cues to relax back when walking and focus on posture only prior to starting then during only on arm swing. He does have dec hip ext and glute engagment during gait. Physical Therapy Plan Frequency and Duration Frequency of Treatment 1-2x/wk Duration of treatment (weeks) 10 Plan of Care Start Date 10/13/23 Plan of Care End Date 12/22/23 Next Visit Focus/Plan Next Note Type Treatment Note Next Visit Plan cont to work on posture and gait mechanics and work on SLS and advanced core/glute work; manaul to pelvis, lumbar and hip to dec pain
--- NOTE | 2023-11-15 11:12 | PT.OTN ---
Current Diagnoses Other chronic pain (11/15/23) Pain in right hip (11/15/23) Low back pain, unspecified (11/15/23) Presence of right artificial hip joint (11/15/23) Physical Therapy Treatment Note PT-OP-A Visit Information Start: 08/03/23 10:55 Freq: Status: Active Protocol: Document 11/15/23 10:34 [facility] (Rec: 11/15/23 11:21 [facility] [id number]) Out-Patient Physical Therapy Visit Information Visit Information Visit Type Treatment Note Visit Note 11/16 Visit Start Time 10:34 Visit Stop Time 11:12 Visit Number 11 Number of PRINT TRAFFIC MANAGER Visits 1 PT-OP-B Current Condition Start: 08/03/23 10:55 Freq: Status: Active Protocol: Document 08/16/23 18:51 [facility] (Rec: 08/16/23 11:22 [facility] [id number]) Current Condition History of Current Condition Current Complaints R SI and lower lumbar History of Current Condition Pt reports the back and hip pain has been going on for several years. He had KELLI in 9 years. 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 Leg length has gotten worse again. Wants program for stability. His back pain has been several years and has been getting worse. It is all R sided. He has always had a leg length since HS. WEars a small lift in R shoe. Cant walk as far. He walks w/his and gardens. Walks w/ 2-3x a week about 1.5 miles slowly- sometimes has pain at the end . Bikes a couple times a week with ebike. Treatment Goals Patient/Caregiver Goals get stabilization program to help maintain mobility PT-OP-C Subjective Start: 08/03/23 10:55 Freq: Status: Active Protocol: Document 11/15/23 10:34 [facility] (Rec: 11/15/23 11:21 [facility] [id number]) OP-PT Subjective Patient Comments Patient Comments Pt reports feels taller, trying to impliment what learnded at home. PT-OP-D Balance Start: 08/03/23 10:55 Freq: Status: Active Protocol: Document 10/13/23 08:19 [facility] (Rec: 10/13/23 09:04 [facility] [id number]) Balance Tests Single Limb Standing Single Limb- Right 15 sec w/deviation Single Limb- Left 15 sec w/deviation PT-OP-F Manual Assessment Start: 08/03/23 10:55 Freq: Status: Active Protocol: Document 08/16/23 18:51 [facility] (Rec: 08/16/23 11:22 [facility] [id number]) Manual Assessments Joint Mobility Assessment Joint Mobility Assessment L iliac crest heigher and greater trochanter and fib head; PT-OP-G Mobility & Gait Start: 08/03/23 10:55 Freq: Status: Active Protocol: Document 08/16/23 18:51 [facility] (Rec: 08/16/23 11:22 [facility] [id number]) OP Gait Assessment Comments Gait Comments dec push off LLE; slight lat trunk leaning, overall dec pelvis motion PT-OP-J Posture/Palpation/Skin Start: 08/03/23 10:55 Freq: Status: Active Protocol: Document 10/13/23 08:19 [facility] (Rec: 10/13/23 09:04 [facility] [id number]) Posture Evaluation Keron Postural Classification System Keron Postural Classifications Posterior/Anterior Lumbar Protective Mechanism Right AP 0 Lumbar Protective Mechanism Left PA 2 Lumbar Protective Mechanism Right PA 1 PT-OP-K Range of Motion Start: 08/03/23 10:55 Freq: Status: Active Protocol: Document 08/16/23 18:51 [facility] (Rec: 08/16/23 11:22 [facility] [id number]) Lumbar Spine Range of Motion Lumbar Spine Active Percentage Flexion 50 Extension 30 Rotation Left 40 Rotation Right 40 Lateral Flexion Left 80 Lateral Flexion Right 60 Comments pain w/flex and ext; pain w/R SB PT-OP-L Special Tests Start: 08/03/23 10:55 Freq: Status: Active Protocol: Document 08/16/23 18:51 [facility] (Rec: 08/16/23 11:22 [facility] [id number]) Special Tests Lumbar Spine Special Tests Slump Test Results ng B Straight Leg Raise Test Results about 45 deg HS stretch PT-OP-M Strength Start: 08/03/23 10:55 Freq: Status: Active Protocol: Document 10/13/23 08:19 [facility] (Rec: 10/13/23 09:04 [facility] [id number]) Hip Strength Hip Manual Muscle Testing Right Flexion (L2) 4 Good Extension (S1) 4- Good- Abduction 4+ Good+ Adduction 4- Good- External Rotation 5 Normal Internal Rotation 5 Normal Left Flexion (L2) 4 Good Extension (S1) 4- Good- Abduction 4 Good Adduction 4 Good External Rotation 5 Normal Internal Rotation 5 Normal Knee Strength Knee Manual Muscle Testing Right Flexion (S2) 5 Normal Extension (L3) 5 Normal Left Flexion (S2) 5 Normal Extension (L3) 5 Normal Ankle/Foot Strength Ankle and Foot Manual Muscle Testing Right Dorsiflexion (L4) 5 Normal Plantarflexion (S1) 5 Normal Left Dorsiflexion (L4) 5 Normal Plantarflexion (S1) 5 Normal Comments 20 heel raises B PT-OP-Q Treatments Start: 08/03/23 10:55 Freq: Status: Active Protocol: Document 11/15/23 10:34 [facility] (Rec: 11/15/23 11:21 [facility] [id number]) Gym Equipment Therapeutic Ball seated Exercise Details TB #4 blue Ball Size/Color 75 cm Body Position Sitting Reps/Duration 15 ea Comments 1. chops B 2. B UE lift w/rot tactile cues for set up/ rotation Gait Training Gait Activity step up Comments 8 in step w/alt october w/ occ cues for full knee ext at end range x10 B-rail prn gait Comments Start in neutral posture w/ cues for push off and arm swing during 8x50ft, cued TA and Rhomboid fac improved no LB recruitment. resisted gait Device Used dowel Distance/Duration 50ftx2 laps Comments good R>L lat and calf push off effort reported, improved foot clearance gait at wall Description plank on wall, SL heel lift /c TKE Treatment Focus calf push off and anterior wt shift for gait support Comments for post dep/ant elevation 6x5sec B-inc time for working on form, cued maintain TKE & high lift head toward ceiling PT-OP-T Assessment and Plan Start: 08/03/23 10:55 Freq: Status: Active Protocol: Document 11/15/23 10:34 [facility] (Rec: 11/15/23 11:21 [facility] [id number]) Physical Therapy Assessment Goals balance Hypo Dipper Goal (LTG) pt will be able to do SLS for 15 sec B LTG Duration achieved 3/6 KYLEIGH Impairment 9/50 Hypo Dipper Goal (LTG) Pt will show iimproved KYLEIGH score to no greater than 4/50 to show improved functional ability LTG Duration 10/25/23 activity Short Term Goal (STG) Pt will be able to do standard walks w/ w/o inc pain 10/12-still stiff getting upright; feels like gait is better, stiff STG Duration 11/07 Fdc Goal (LTG) Pt will be able to walk greater than 1.5 mile without increased pain 10/12-has not tried d/t weather LTG Duration 12/21 strength Short Term Goal (STG) Pt will be indep w/HEP STG Duration achieved advancing as able Fdc Goal (LTG) Pt will score at least 4+/5 on all LE MMT B and at least 3/5 on LPM in all planes to show improved stabiltiy in order to dec pain. 10/12-improved LTG Duration 12/24 Assessment Summary Assessment Pt improved gait mechanics and trunk rotation motion with cuing adn facilitated resistance today. Reported no back recruitment with cuing scap squeeze and TA engagement . Noted TKE corrections during SL heel lift at wall with tactile cues to quad and verbage lift head toward ceiling, able to hold for 3 sec before tires. Physical Therapy Plan Frequency and Duration Frequency of Treatment 1-2x/wk Duration of treatment (weeks) 10 Plan of Care Start Date 10/13/23 Plan of Care End Date 12/22/23 Therapeutic Interventions Therapeutic Interventions Balance Training,Gait Training ,Home Exercise Program,Joint Mobilizations,Manual Therapy, Neuromuscular Re-education, Orthotic/Prosthetic Management ,Patient/Caregiver Education, Self-Care/Home Management,Soft Tissue Mobilization,Taping, Therapeutic Activities, Therapeutic Exercises Modalities Cold Pack/Ice Massage,Electric Stimulation,Hot Packs, Traction- Mechanical, Ultrasound Next Visit Focus/Plan Next Note Type Treatment Note Next Visit Plan cont to work on posture and gait mechanics and work on SLS and advanced core/glute work; manaul to pelvis, lumbar and hip to dec pain
--- NOTE | 2023-11-25 10:28 | PT.OTN ---
Current Diagnoses Other chronic pain (11/25/23) Pain in right hip (11/25/23) Low back pain, unspecified (11/25/23) Presence of right artificial hip joint (11/25/23) Physical Therapy Treatment Note PT-OP-A Visit Information Start: 08/03/23 10:55 Freq: Status: Active Protocol: Document 11/25/23 09:48 SP (Rec: 11/25/23 10:30 SP [id number]) Out-Patient Physical Therapy Visit Information Visit Information Visit Type Treatment Note Visit Note 12/16 post PN Visit Start Time 09:48 Visit Stop Time 10:28 Visit Number 12 Number of BEAD TRIMMER Visits 2 PT-OP-B Current Condition Start: 08/03/23 10:55 Freq: Status: Active Protocol: Document 08/16/23 18:51 [facility] (Rec: 08/16/23 11:22 [facility] [id number]) Current Condition History of Current Condition Current Complaints R SI and lower lumbar History of Current Condition Pt reports the back and hip pain has been going on for several years. He had LUISITO in 9 years. He has leg length discrepency which was better intially after Luisito but that got worse and did PT about 7-8 years ago. Leg length has gotten worse again. Wants program for stability. His back pain has been several years and has been getting worse. It is all R sided. He has always had a leg length since HS. WEars a small lift in R shoe. Cant walk as far. He walks w/his and gardens. Walks w/ 2-3x a week about 1.5 miles slowly- sometimes has pain at the end . Bikes a couple times a week with ebike. Treatment Goals Patient/Caregiver Goals get stabilization program to help maintain mobility PT-OP-C Subjective Start: 08/03/23 10:55 Freq: Status: Active Protocol: Document 11/25/23 09:48 SP (Rec: 11/25/23 10:30 SP [id number]) OP-PT Subjective Patient Comments Patient Comments Pt reported therapy is making a hell of a difference. PT-OP-D Balance Start: 08/03/23 10:55 Freq: Status: Active Protocol: Document 10/13/23 08:19 LR (Rec: 10/13/23 09:04 [facility] [id number]) Balance Tests Single Limb Standing Single Limb- Right 15 sec w/deviation Single Limb- Left 15 sec w/deviation PT-OP-F Manual Assessment Start: 08/03/23 10:55 Freq: Status: Active Protocol: Document 08/16/23 18:51 [facility] (Rec: 08/16/23 11:22 [facility] [id number]) Manual Assessments Joint Mobility Assessment Joint Mobility Assessment L iliac crest heigher and greater trochanter and fib head; PT-OP-G Mobility & Gait Start: 08/03/23 10:55 Freq: Status: Active Protocol: Document 08/16/23 18:51 [facility] (Rec: 08/16/23 11:22 [facility] [id number]) OP Gait Assessment Comments Gait Comments dec push off LLE; slight lat trunk leaning, overall dec pelvis motion PT-OP-J Posture/Palpation/Skin Start: 08/03/23 10:55 Freq: Status: Active Protocol: Document 10/13/23 08:19 [facility] (Rec: 10/13/23 09:04 [facility] [id number]) Posture Evaluation Keron Postural Classification System Keron Postural Classifications Posterior/Anterior Lumbar Protective Mechanism Right AP 0 Lumbar Protective Mechanism Left PA 2 Lumbar Protective Mechanism Right PA 1 PT-OP-K Range of Motion Start: 08/03/23 10:55 Freq: Status: Active Protocol: Document 08/16/23 18:51 [facility] (Rec: 08/16/23 11:22 [facility] [id number]) Lumbar Spine Range of Motion Lumbar Spine Active Percentage Flexion 50 Extension 30 Rotation Left 40 Rotation Right 40 Lateral Flexion Left 80 Lateral Flexion Right 60 Comments pain w/flex and ext; pain w/R SB PT-OP-L Special Tests Start: 08/03/23 10:55 Freq: Status: Active Protocol: Document 08/16/23 18:51 [facility] (Rec: 08/16/23 11:22 [facility] [id number]) Special Tests Lumbar Spine Special Tests Slump Test Results ng B Straight Leg Raise Test Results about 45 deg HS stretch PT-OP-M Strength Start: 08/03/23 10:55 Freq: Status: Active Protocol: Document 10/13/23 08:19 [facility] (Rec: 10/13/23 09:04 [facility] [id number]) Hip Strength Hip Manual Muscle Testing Right Flexion (L2) 4 Good Extension (S1) 4- Good- Abduction 4+ Good+ Adduction 4- Good- External Rotation 5 Normal Internal Rotation 5 Normal Left Flexion (L2) 4 Good Extension (S1) 4- Good- Abduction 4 Good Adduction 4 Good External Rotation 5 Normal Internal Rotation 5 Normal Knee Strength Knee Manual Muscle Testing Right Flexion (S2) 5 Normal Extension (L3) 5 Normal Left Flexion (S2) 5 Normal Extension (L3) 5 Normal Ankle/Foot Strength Ankle and Foot Manual Muscle Testing Right Dorsiflexion (L4) 5 Normal Plantarflexion (S1) 5 Normal Left Dorsiflexion (L4) 5 Normal Plantarflexion (S1) 5 Normal Comments 20 heel raises B PT-OP-Q Treatments Start: 08/03/23 10:55 Freq: Status: Active Protocol: Document 11/25/23 09:48 SP (Rec: 11/25/23 10:30 SP [id number]) Gym Equipment Therapeutic Ball seated Exercise Details TB #4 blue Ball Size/Color 75 cm Body Position Sitting Reps/Duration 20 ea Comments 1. B chops 2. B UE lift w/rot tactile cues for set up/ rotation trunk with arms Gait Training Gait Activity step up Comments 1. 8 in step w/alt march w/ occ cues for full knee ext at end range x10 2. receiprocal stepping arms swing MAP bld stairs gait Comments Start in neutral posture w/ cues for push off and arm swing during 8x50ft, cued TA and Rhomboid fac improved no LB recruitment. resisted gait Device Used dowel Distance/Duration 50ftx2 laps Comments good R>L lat and calf push off effort reported, improved foot clearance dynamic walking Description HTs Device Used 0 Distance/Duration 50 ft hallway 3 laps in ER hallway Treatment Focus stability, midline righting during dynamic mob Comments cued arm swing, scapular mobility, TS roatation. Noted R lat calcaneus/ankle shift- shoe tred worn, safety concern and can affect bal. Self-Care/Home Management Treatment Education Patient Education Body Mechanics,Posture,Safety Other Education 5 min: discussion about new shoes due to R posterolateral calcaneus slight roll lateral. Noted lat heel tread very worn, will look into new sneakers for safety ankle stability and balance. PT-OP-T Assessment and Plan Start: 08/03/23 10:55 Freq: Status: Active Protocol: Document 11/25/23 09:48 SP (Rec: 11/25/23 10:30 SP [id number]) Physical Therapy Assessment Goals balance Flower Arranger Goal (LTG) pt will be able to do SLS for 15 sec B LTG Duration achieved 3/6 KYLEIGH Impairment 9/50 Correction Goal (LTG) Pt will show iimproved KYLEIGH score to no greater than 4/50 to show improved functional ability LTG Duration 10/25/23 activity Short Term Goal (STG) Pt will be able to do standard walks w/ w/o inc pain 10/12-still stiff getting upright; feels like gait is better, stiff 11/25/23: Has noticed walking dull ache at approx 1 miles stretch briefly and goes away, not able to go further than 's 3 miles.Finds walking actually feels like a stretch out. STG Duration 11/07 progressing 11/25/23 Flower Arranger Goal (LTG) Pt will be able to walk greater than 1.5 mile without increased pain 10/12-has not tried d/t weather 11/25/23: finds posture more upright and going 3 miles plus with dull back ache but periodic stretching helps to diminish, not really pain. LTG Duration 12/21 almost met 11/25/23 strength Short Term Goal (STG) Pt will be indep w/HEP STG Duration achieved advancing as able Flower Arranger Goal (LTG) Pt will score at least 4+/5 on all LE MMT B and at least 3/5 on LPM in all planes to show improved stabiltiy in order to dec pain. 10/12-improved LTG Duration 12/24 Assessment Summary Assessment BEAD TRIMMER provided tactile cues for postural corrections rotation during seated core ther ex, doesn't have tbal home. Improved glut drive step ups. Much ed scapular ROM with arm swing during gait to increase mobility support back pain. Time spent discussion R shoe decreased lateral heel tread and noted decreased ankle support, risk rolling. Pt in agreement will look into new sneakers for R ankle neutral positioning. Physical Therapy Plan Frequency and Duration Frequency of Treatment 1-2x/wk Duration of treatment (weeks) 10 Plan of Care Start Date 10/13/23 Plan of Care End Date 12/22/23 Therapeutic Interventions Therapeutic Interventions Balance Training,Gait Training ,Home Exercise Program,Joint Mobilizations,Manual Therapy, Neuromuscular Re-education, Orthotic/Prosthetic Management ,Patient/Caregiver Education, Self-Care/Home Management,Soft Tissue Mobilization,Taping, Therapeutic Activities, Therapeutic Exercises Modalities Cold Pack/Ice Massage,Electric Stimulation,Hot Packs, Traction- Mechanical, Ultrasound Next Visit Focus/Plan Next Note Type Treatment Note Next Visit Plan Check francisco Ruiz. POC: cont to work on posture and gait mechanics and work on SLS and advanced core/glute work; manaul to pelvis, lumbar and hip to dec pain
--- NOTE | 2023-12-22 18:09 | PT.OTN ---
Current Diagnoses Other chronic pain (12/22/23) Pain in right hip (12/22/23) Low back pain, unspecified (12/22/23) Presence of right artificial hip joint (12/22/23) Physical Therapy Treatment Note PT-OP-A Visit Information Start: 08/03/23 10:55 Freq: Status: Active Protocol: Document 12/22/23 10:37 [facility] (Rec: 12/22/23 18:09 [facility] [id number]) Out-Patient Physical Therapy Visit Information Visit Information Visit Type Discharge Summary Visit Start Time 10:37 Visit Stop Time 11:15 Visit Number 13 Number of PLASTERER HELPER Visits 0 PT-OP-B Current Condition Start: 08/03/23 10:55 Freq: Status: Active Protocol: Document 08/16/23 18:51 [facility] (Rec: 08/16/23 11:22 [facility] [id number]) Current Condition History of Current Condition Current Complaints R SI and lower lumbar History of Current Condition Pt reports the back and hip pain has been going on for several years. He had KELLI in 9 years. 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 Leg length has gotten worse again. Wants program for stability. His back pain has been several years and has been getting worse. It is all R sided. He has always had a leg length since HS. WEars a small lift in R shoe. Cant walk as far. He walks w/his and gardens. Walks w/ 2-3x a week about 1.5 miles slowly- sometimes has pain at the end . Bikes a couple times a week with ebike. Treatment Goals Patient/Caregiver Goals get stabilization program to help maintain mobility PT-OP-C Subjective Start: 08/03/23 10:55 Freq: Status: Active Protocol: Document 12/22/23 10:37 [facility] (Rec: 12/22/23 18:09 [facility] [id number]) OP-PT Subjective Patient Comments Patient Comments Pt reports he has been building a fence and he feels like his back is better and his posture is better. He stiff in the AM and once warm up, does okay. PT-OP-D Balance Start: 08/03/23 10:55 Freq: Status: Active Protocol: Document 10/13/23 08:19 [facility] (Rec: 10/13/23 09:04 [facility] [id number]) Balance Tests Single Limb Standing Single Limb- Right 15 sec w/deviation Single Limb- Left 15 sec w/deviation PT-OP-F Manual Assessment Start: 08/03/23 10:55 Freq: Status: Active Protocol: Document 08/16/23 18:51 [facility] (Rec: 08/16/23 11:22 [facility] [id number]) Manual Assessments Joint Mobility Assessment Joint Mobility Assessment L iliac crest heigher and greater trochanter and fib head; PT-OP-G Mobility & Gait Start: 08/03/23 10:55 Freq: Status: Active Protocol: Document 08/16/23 18:51 [facility] (Rec: 08/16/23 11:22 [facility] [id number]) OP Gait Assessment Comments Gait Comments dec push off LLE; slight lat trunk leaning, overall dec pelvis motion PT-OP-J Posture/Palpation/Skin Start: 08/03/23 10:55 Freq: Status: Active Protocol: Document 12/22/23 10:37 [facility] (Rec: 12/22/23 18:09 [facility] [id number]) Posture Evaluation Keron Postural Classification System Lumbar Protective Mechanism Left AP 3 Lumbar Protective Mechanism Right AP 3 Lumbar Protective Mechanism Left PA 3 Lumbar Protective Mechanism Right PA 3 PT-OP-K Range of Motion Start: 08/03/23 10:55 Freq: Status: Active Protocol: Document 08/16/23 18:51 [facility] (Rec: 08/16/23 11:22 [facility] [id number]) Lumbar Spine Range of Motion Lumbar Spine Active Percentage Flexion 50 Extension 30 Rotation Left 40 Rotation Right 40 Lateral Flexion Left 80 Lateral Flexion Right 60 Comments pain w/flex and ext; pain w/R SB PT-OP-L Special Tests Start: 08/03/23 10:55 Freq: Status: Active Protocol: Document 08/16/23 18:51 [facility] (Rec: 08/16/23 11:22 [facility] [id number]) Special Tests Lumbar Spine Special Tests Slump Test Results ng B Straight Leg Raise Test Results about 45 deg HS stretch PT-OP-M Strength Start: 08/03/23 10:55 Freq: Status: Active Protocol: Document 12/22/23 10:37 [facility] (Rec: 12/22/23 18:09 [facility] [id number]) Hip Strength Hip Manual Muscle Testing Right Flexion (L2) 5 Normal Extension (S1) 5 Normal Abduction 5 Normal Adduction 5 Normal External Rotation 5 Normal Internal Rotation 5 Normal Left Flexion (L2) 5 Normal Extension (S1) 5 Normal Abduction 5 Normal Adduction 5 Normal External Rotation 5 Normal Internal Rotation 5 Normal Knee Strength Knee Manual Muscle Testing Right Flexion (S2) 5 Normal Extension (L3) 5 Normal Left Flexion (S2) 5 Normal Extension (L3) 5 Normal Ankle/Foot Strength Ankle and Foot Manual Muscle Testing Right Dorsiflexion (L4) 5 Normal Plantarflexion (S1) 5 Normal Left Dorsiflexion (L4) 5 Normal Plantarflexion (S1) 5 Normal Comments 20 heel raises B PT-OP-Q Treatments Start: 08/03/23 10:55 Freq: Status: Active Protocol: Document 12/22/23 10:37 [facility] (Rec: 12/22/23 18:09 [facility] [id number]) Therapeutic Exercises Supine Exercises stretch Supine Exercise Name DKTC Side bilateral Reps/Minutes 1 min isometric Supine Exercise Name DL flex Side bilateral Reps/Minutes [id number] Comments cues for breathing pelvic tilts Supine Exercise Name ant/post Side bilateral Reps/Minutes 12 Comments cues tactile and vc LTR Supine Exercise Name HEP reviewed Side bilateral Reps/Minutes 8 ea Comments cues for ROM and core Neuro Re-Education Treatment Balance Activities EC Comments 1. NBOS 2. staggered stance B 3. semi tandem B SLS Comments b trials tandem walking Comments tandem stance B trials Self-Care/Home Management Treatment Education Other Education 10 min: edu of cont exercises to help w/ROM in AM, core to keep back stable and balance for core and safety work; discussed gradually returning to inc walking again PT-OP-T Assessment and Plan Start: 08/03/23 10:55 Freq: Status: Active Protocol: Document 12/22/23 10:37 [facility] (Rec: 12/22/23 18:09 [facility] [id number]) Physical Therapy Assessment Goals KYLEIGH Impairment Invoice Classification Clerk Goal (LTG) Pt will show iimproved KYLEIGH score to no greater than 4/50 to show improved functional ability LTG Duration achieved to 50 activity Short Term Goal (STG) Pt will be able to do standard walks w/ w/o inc pain 10/12-still stiff getting upright; feels like gait is better, stiff 11/25/23: Has noticed walking dull ache at approx 1 miles stretch briefly and goes away, not able to go further than 's 3 miles.Finds walking actually feels like a stretch out. STG Duration achieved 12/21 Group Home Goal (LTG) Pt will be able to walk greater than 1.5 mile without increased pain 10/12-has not tried d/t weather 11/25/23: finds posture more upright and going 3 miles plus with dull back ache but periodic stretching helps to diminish, not really pain. LTG Duration hasn't been doing inc walking, but has been building a fence &walks lot w/ strength Short Term Goal (STG) Pt will be indep w/HEP STG Duration achieved advancing as able Group Home Goal (LTG) Pt will score at least 4+/5 on all LE MMT B and at least 3/5 on LPM in all planes to show improved stabiltiy in order to dec pain. /-improved LTG Duration achieved 12/21 Assessment Summary Assessment Pt has made excellent progres w/PT and at this time is DC to indep HEP. HEP given today for more advanced core, balance exercises and exercises to help warm up in AM. Pt feels good about DC. Physical Therapy Plan Discharge Physical Therapy Discharge Reasons Goals Met
== END 2023-12-28 10:39 | disposition home or self-care (01) ==
LOC: PHYS 10:30
PROVIDERS: Family Provider Family Medicine; PCP Family Medicine; Referring Provider Family Medicine; Visit Provider Family Medicine
DX: M54.50 Low back pain, unspecified (principal); G89.29 Other chronic pain; Z96.641 Presence of right artificial hip joint; M25.551 Pain in right hip
CPT/HCPCS: 97110; 97112; 97116; 97140; 97162; 97530; 97535

== ENCOUNTER 2024-07-03 08:42 | Emergency (ER) | payer MEDICARE, SELFPAY ==
[2024-07-03] VITALS (12 sets, daily range): BP systolic 173–220; BP diastolic 82–140; PULSE 53–68; RESP 15–19; TEMP 36.3; O2SAT 93–98; BMI 25.8
--- NOTE | 2024-07-03 08:58 | EKG_ITS ---
[address] [address] Test Date: 2024-07-03 Pat Name: Gene York Department: Room: Gender: Male [employer] Developer: MER : 1940 Requested By: Order Number: [id number] Reading MD: Nolan Nava Measurements Intervals [place] Rate: 53 P: 60 NE: 190 QRS: -48 QRSD: 102 T: 20 QT: 410 QTc: 384 Interpretive Statements Sinus bradycardia Left axis deviation Electronically Signed On 07-03-2024 16:50:52 PST by Nolan Nava
--- NOTE | 2024-07-03 09:33 | PC.NURSE ---
PT states usually takes BP meds at 1200 and 0000. He has had difficulty sleeping last night. He checked his BP this morning and found it to be over 200 systolic. Pt had an appointment with application architect manager in [place] scheduled today, but because of his HTN pt decided to cancel his appointment to be seen in ER. Pt denies chest pain, SOB, dizziness, lightheaded. He endorses a 1/10 pain in his left arm that is often there, and am not concerned for.
--- NOTE | 2024-07-03 09:38 | ED.GENADULT ---
HPI - General Adult General Chief complaint: Hypertension Stated complaint: High Blood pressure Time Seen by Provider: 07/03/24 09:37 Source: patient Mode of arrival: Ambulatory History of Present Illness HPI narrative: Patient is a 83-year-old male history of hypertension coronary artery disease stent placed 10 years ago followed by cardiology [place] presents today with elevated blood pressure. He reports that he did not sleep last night and woke up this morning with high blood pressure with a systolic in the 200s. He and his both were supposed to have a cardiology appointment today at 10:00 a.m. but they came to the emergency department and canceled the cardiology appointment. He has no headache chest pain or shortness of breath. He does report light tingling in his left arm but says that is gone now. He reports that he had an episode of elevated blood pressure 2 days ago with his blood pressure in the 180s during that time he was some tingling in his left arm. He denies any sort of weakness he has no real decreased sensation. No prior history of stroke. He takes blood pressure medication at noon he has not yet taken his morning pills. Related Data Home Medications Medication Instructions Recorded Confirmed aspirin 81 mg tablet,delayed 81 mg PO DAILY 07/19/23 07/19/23 release atorvastatin 40 mg tablet 40 mg PO DAILY 07/19/23 07/19/23 carvedilol 12.5 mg tablet mg PO 07/19/23 07/19/23 carvedilol 6.25 mg tablet mg PO 07/19/23 07/19/23 fluticasone propionate 50 spray intranasal 07/19/23 07/19/23 mcg/actuation nasal spray,suspension loratadine 10 mg tablet (Allergy 10 mg PO DAILY 07/19/23 07/19/23 Relief (loratadine)) losartan 50 mg tablet 50 mg PO DAILY 07/19/23 07/19/23 nitroglycerin 0.4 mg sublingual mg sublingual 07/19/23 07/19/23 tablet tamsulosin 0.4 mg capsule 0.4 mg PO BEDTIME 07/19/23 07/19/23 Previous Rx's Medication Instructions Recorded albuterol sulfate 90 mcg/actuation 2 puff inhalation Q4-6H PRN 07/19/23 aerosol inhaler shortness of breath or wheezing #6.7 grams azithromycin 250 mg tablet See Rx Instructions PO .COMPLEX #6 07/19/23 tabs benzonatate 100 mg capsule 200 mg (2 x 100 mg) PO BID PRN 07/21/23 cough #20 caps losartan 50 mg tablet 50 mg PO DAILY #30 tabs 07/03/24 Allergies Allergy/AdvReac Type Severity Reaction Status Date / Time hydrocodone [From Vicodin] AdvReac Severe Hallucinati Verified 07/19/23 07:15 ng nitroglycerin AdvReac Severe arrhythmia Verified 07/19/23 07:15 lisinopril AdvReac Verified 07/03/24 08:55 Patient History Social History Smoking Status: Former smoker Smoking Status: Former smoker alcohol intake frequency: a few times a week Substance Use Type: does not use Exam Initial Vital Signs Initial Vital Signs: Vital Signs Pulse Rate 64 07/03/24 08:51 Pulse Oximetry 97 07/03/24 08:51 GENERAL: Alert pleasant 83-year-old male and in no acute distress. HEENT: Head atraumatic,EOMI, pupils reactive, face symmetric, moist mucous membranes CARDIOVASCULAR: Regular rate and rhythm without murmurs, rubs or gallops. RESPIRATORY: Breath sounds equal bilaterally, no wheezes rales or rhonchi. ABDOMEN: Soft, nontender. Normoactive bowel sounds all 4 quadrants. No guarding or rebound. EXTREMITIES: Normal range of motion, no clubbing or edema. Neurovascularly intact NEUROLOGICAL: Alert and oriented x4.Normal gait and speech. Cranial nerves II through XII grossly intact. Good [id number], good [id number], strength equal bilaterally, no dysarthria or aphasia, sensation in tact to soft touch bilaterally, no visual changes, no facial droop SKIN: Warm, dry, no laceration, no petechiae, no rashes or lesions. Scores NIH Stroke Scale Level of Conciousness: Alert, keenly responsive Ask month/age: Answers both questions correctly. Open/close eyes, close hand: Performs both tasks correctly Best gaze horizontal: Normal Visual curry: No visual loss Facial palsy: Normal symetrical movement Left arm drift: No drift for full 10 sec Right arm drift: No drift for full 10 sec Left leg drift: No drift for full 5 sec Right leg drift: No drift for full 5 sec Limb ataxia: Absent Sensory on face/arms/legs: Normal, no sensory loss Best language: No aphasia, normal Dysarthria: Normal Extinction or inattention: No abnormality Total NIH Stroke scale score: 0 Course Orders Ordered: Discontinued Medications Carvedilol (Carvedilol 3.125 Mg Tablet) 6.25 mg PO NOW ONE Stop: 07/03/24 09:53 Last Admin: 07/03/24 10:03 Dose: 6.25 mg Documented By: CARMEN Losartan Potassium (Losartan 50 Mg Tablet) 100 mg PO NOW ONE Stop: 07/03/24 09:53 Last Admin: 07/03/24 10:04 Dose: 100 mg Documented By: CARMEN Vital Signs Vital signs: Vital Signs - 8 hr 07/03/24 08:51 07/03/24 08:52 07/03/24 08:52 Temperature Pulse Rate 64 65 Respiratory Rate Blood Pressure 220/95 H Pulse Oximetry 97 96 Oxygen Delivery Method 07/03/24 08:55 07/03/24 09:00 07/03/24 09:01 Temperature 97.4 F L Pulse Rate 68 54 L Respiratory Rate 18 Blood Pressure 220/95 H 194/84 H Pulse Oximetry 98 98 Oxygen Delivery Method Room Air 07/03/24 09:01 07/03/24 09:19 07/03/24 09:19 Temperature Pulse Rate 56 L 68 Respiratory Rate 18 19 Blood Pressure 189/140 H Pulse Oximetry 98 93 Oxygen Delivery Method Medical Decision Making ECG Data Attestation: I personally reviewed and interpreted this ECG as follows: Prior ECG tracings: not available for review Interpretation: Normal sinus rhythm rate 53 MA interval 190 QRS [address] change MDM Narrative Medical decision making narrative: Patient is a 83-year-old male history of hypertension coronary artery disease presenting today with hypertension. He has a very minimal tingling which resolves with his blood pressure goes down. Low concern for TIA or stroke. Although I did discuss with patient and need to control blood pressure. At this time he has had 2 episodes of elevated blood pressure. Considering increasing losartan to 100 mg daily. His heart rate is in the 50s would not increase the Coreg. At this time he has no other symptoms besides tingling that is very minimal he has no weakness he has an NIH stroke scale of 0. I do not see benefit for blood work. 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 Recommend that he monitor and record his blood pressures Discharge Plan Departure Patient Disposition: Home Clinical Impression: Hypertension Instructions: DI for High Blood Pressure Activity Restrictions/Additional Instructions: *You have been diagnosed with elevated blood pressure *What to do: At this time please record your blood pressure twice a day morning and not eat and then discuss blood pressure medication with primary care provider or Cardiology. We can try increasing losartan to 100 mg once a day. However if your blood pressure is less than 110 do not take losartan. *Continue to take medications as directed Change Losartan from 50 to 100 mg once daily Continue Coreg as prescribed *Follow up with your primary care provider in 2-3 days or call [phone] *Return to ER if you should have headache weakness numbness tingling chest pain or any new, worsening or concerning symptoms Prescriptions: New losartan 50 mg tablet 50 mg PO DAILY Qty: 30 0RF No Action fluticasone propionate 50 mcg/actuation spray,suspension intranasal losartan 50 mg tablet 50 mg PO DAILY nitroglycerin 0.4 mg tablet, sublingual sublingual carvedilol 6.25 mg tablet PO carvedilol 12.5 mg tablet PO atorvastatin 40 mg tablet 40 mg PO DAILY aspirin 81 mg tablet,delayed release (DR/EC) 81 mg PO DAILY tamsulosin 0.4 mg capsule 0.4 mg PO BEDTIME loratadine [Allergy Relief (loratadine)] 10 mg tablet 10 mg PO DAILY azithromycin 250 mg tablet See Rx Instructions PO .COMPLEX Qty: 6 0RF Rx Instructions: For 250 mg dose pack: take 500 mg today (day 1), then 250 mg for 4 days (days 2-5) PO albuterol sulfate 90 mcg/actuation HFA aerosol inhaler 2 puff inhalation Q4-6H PRN (Reason: shortness of breath or wheezing) Qty: 6.7 0RF benzonatate 100 mg capsule 200 mg PO BID PRN (Reason: cough) Qty: 20 0RF Referrals: Josefa Harp MD [Primary Care Provider] - Stand Alone Forms: Patient Portal/API/Survey
[2024-07-03] MEDS: carvediloL 3.125 MG TABLET 6.25 MG PO (10:03)
[2024-07-03] MEDS: LOSARTAN 50 MG TABLET 100 MG PO (10:04)
== END 2024-07-03 10:24 | disposition home or self-care (01) ==
PROVIDERS: Emergency Provider Emergency Medicine; Family Provider Family Medicine; PCP Family Medicine
DX: I10 Essential (primary) hypertension (principal); R00.1 Bradycardia, unspecified
CPT/HCPCS: 93005; 99283

== ENCOUNTER → 2024-11-20 15:10 | Outpatient (CLI) | payer MEDICARE, SELFPAY ==
--- NOTE | 2024-11-20 15:12 | DI.RAD.S_ITS ---
PROCEDURE: XR CHEST 2V INDICATIONS: Cough TECHNIQUE: 2 views of the chest were acquired. COMPARISON: [facility], CR, XR CHEST 2V, 07/19/2023, 8:22. FINDINGS: Heart, mediastinum and pulmonary vascular: Heart is normal in size and configuration. Mediastinum is unremarkable. Pulmonary vascular is normal. Lungs: Small right lower lobe infiltrate has developed Pleural spaces: Normal-no effusions or pneumothorax. Bones and soft tissues: Normal IMPRESSION: Small right lower lobe pneumonia Dictated by: Kailash Gonzáles M.D. on 11/21/2024 at 8:08 Approved by: Kailash Gonzáles M.D. on 11/21/2024 at 8:10
== END ==
PROVIDERS: Family Provider Family Medicine; PCP Family Medicine; Referring Provider Family Medicine; Visit Provider Nurse Practitioner Family
DX: J18.9 Pneumonia, unspecified organism (principal); R05.9 Cough, unspecified
CPT/HCPCS: 71046